=== PATIENT | male | born 1950 | race Caucasian/White ===

== ENCOUNTER 2019-01-04 11:48 | Inpatient (IN) | payer MEDICARE ==
[2019-01-04] MEDS ORDERED: Amiodarone 150 MG, Admixture Fee 1 EACH in Dextrose 5% in Water 100 ML IVPB SCH (12:15)
[2019-01-04] MEDS ORDERED: Amiodarone In Dextrose 200 ML IVPB SCH (12:15)
[2019-01-04] MEDS ORDERED: Magnesium 2 GM/50 ML BAG (IN WATER) ONE (12:29)
--- NOTE | 2019-01-04 13:04 | PDOC.FPRHP ---
- History of Present Illness Chief Complaint: SVT-Afib History of Present Illness: This is a 68 yo M who presents to the ED via EMS from [place] for new onset atrial fibrillation, going in and out of SVT. Pt c/c was not being able to catch his breath. The patient reports that he was having difficulty breathing. His symptoms started yesterday morning suddenly and worsened today. SOB comes and goes. Activity makes SOB worse. The patient reportedly went back and forth from T (150-152) to A-fib. The EMS started the patient on a cardezim and heparin drip. The patient endorses having a DVT 4 years ago before knee replacement. Reports having some sweating episodes this morning and felt a little woozy. Pt reports getting chill yesterday and getting SOB and almost falling down. Pt denies any swelling in legs or pain in in his legs. Denies any chest pain, n/v/d/c. Denies any numbness or tingling. ED Course: Pt was initially started on diltiazem drip on way to ER but was switched to amiodarone. - Allergies/Adverse Reactions Allergies Allergy/AdvReac Type Severity Reaction Status Date / Time No Known Allergies Allergy Unverified 07/30/13 19:28 - Home Medications Medication Instructions Recorded Confirmed Type Lisinopril [Zestril] 20 mg PO DAILY 07/30/13 07/30/13 History Enoxaparin Sodium [Lovenox] 100 mg SC 0600,1800 #0 syringe 08/02/13 Rx Warfarin Sodium [Coumadin] 5 mg PO HS #0 tab 08/02/13 Rx Comments: Pt no longer on lovenox and warfarin at this time. Has been off these for 5 years. - History PMHx: Hx DVT, HTN PSHx: Bilateral Knee Replacement (2016) FHx: noncontributory Mother- lupus Social: Never Smoker, Drinks on the weekends 5-6 glasses, Denies any illicit drug use. - Review of Systems General: reports: other (Reports sweats). denies: fever/chills, weight/appetite /sleep changes Eyes: denies: eye pain, vision changes ENT: denies: nasal congestion, rhinorrhea Respiratory: reports: shortness of breath, exercise intolerance. denies: cough , congestion Cardiovascular: denies: chest pain, palpitation, edema, orthopnea Gastrointestinal: denies: nausea, vomiting, diarrhea, constipation, abdominal pain Skin: denies: rashes, lesions Musculoskeletal: denies: pain, tenderness Neurological: reports: other (Reports having one pre-syncopal episode.). denies : numbness, syncope, weakness Psychological: denies: anxiety, depression - Vital signs BP: 99/86, Pulse: 145, Resp: 24, Pain: 0, O2 sat: 98, Time: 01/04/2019 12:01. Weight 130.8kg - Physical Exam Heart: normal S1/S2, no murmurs/rubs/gallops -Heart: Irregulaly irregular FMR H&P: Results - Labs Result Diagrams: 01/04/19 14:37 - Radiology Interpretation Chest x-ray Status: report reviewed by me (no cardiopulm process) FMR H&P: A/P - Problem List (1) Atrial fibrillation Current Visit: Yes Status: Acute Code(s): I48.91 - UNSPECIFIED ATRIAL FIBRILLATION (2) SVT (supraventricular tachycardia) Current Visit: Yes Status: Acute Code(s): I47.1 - SUPRAVENTRICULAR TACHYCARDIA (3) Atrial fibrillation with rapid ventricular response Current Visit: Yes Status: Acute Code(s): I48.91 - UNSPECIFIED ATRIAL FIBRILLATION - Plan New onset Atrial Fibrillation w/ RVR EKG showing atrial fibrillation w/ RVR. Trop neg 0.023 -> 0.051. - Started on dilt drip with no improvement. Patient started on amio and heparin drip. Heparin drip started due to hx of DVT. Will discontinue heparin drip as no concern for PE. D-dimer negative. - Will continue to trend troponin - TSH nml. No infectious etiology- Procal pending. - Will obtain echo - Cardiology consulted - Dr. Levy. Appreciate recommendations. Elevated Troponin - 0.025 -> 0.05. Will continue to trend - EKG showing atrial fibrillation. No ST changes evident. Leukopenia - WBC 3.7, no previous values to compare - Will obtain a peripheral smear Elevated BNP - BNP 679.9 - Will order echo - Cards consulted HTN - will hold home med - lisinopril Anticoagulation: heparin drip Fluids: gentle fluids Consults: cardiology Diet: NPO Case Discussed with Dr. Arnulfo Addendum - Attending - Attending Attestation Date/Time: 01/04/19 1529 I personally evaluated the patient and discussed the management with Dr. Kuo at the time of admission. I agree with the History, Examination, Assessment and Plan documented above with any addition or exceptions noted below.
[2019-01-04] MEDS ORDERED: Acetaminophen 325 MG TAB PO PRN (13:44)
[2019-01-04] MEDS ORDERED: Ondansetron PF 4 MG/2 ML Vial IVP PRN (13:44)
[2019-01-04] MEDS ORDERED: Acetaminophen 650 MG Suppository PR PRN (13:44)
[2019-01-04] MEDS ORDERED: Ondansetron ODT 4 MG TAB PO PRN (13:44)
[2019-01-04 14:49] LABS: Hemoglobin 12.9 g/dL (14.0-18.0); Mean Corpuscular HGB CONC 34.2 g/dL (32.0-36.0); Mean Corpuscular Hemoglobin 32.2 pg (27.0-31.0); Mean Corpuscular Volume 94.1 fL (78.0-98.0); Mean Platelet Volume 8.2 fL (7.4-10.4); Platelet Count 155 thou/uL (130-400); RBC Distribution Width 12.7 % (11.5-14.5); Red Blood Cell (RBC) Count 4.01 mill/uL (4.70-6.10); White Blood Cell (WBC) Count 4.2 thou/uL (4.8-10.8)
[2019-01-04 15:14] LABS: Band 2 % (5-11); Lymphocytes 25 % (21-51); MDiff Complete? YES; Monocytes 16 % (0-10); Neutrophil 53 % (42-75); Platelet Morphology Comment Appears Adequate; RBC Morphology Normal; Reactive Lymphocytes 3 % (0-10)
[2019-01-04 16:01] LABS: Troponin I 0.136 ng/mL (< 0.028)
[2019-01-04 18:17] VITALS: BMI 40.6
[2019-01-04 18:43] LABS: Hemoglobin A1c 4.9 % (4.0-6.0)
[2019-01-04] MEDS: Amiodarone 450 MG, Admixture Fee 1 EACH in Dextrose 5% in Water 250 ML IVPB SCH (18:43)
[2019-01-04 19:04] LABS: Troponin I 0.117 ng/mL (< 0.028)
[2019-01-04 19:18] LABS: CKMB 2.4 ng/mL (0-6.6)
[2019-01-04] MEDS: Lactated Ringer's 1,000 ML IV SCH (19:51)
[2019-01-04] MEDS ORDERED: Digoxin 0.5 MG/2 ML AMP SLOW IVP SCH (20:45)
[2019-01-04] MEDS ORDERED: Enoxaparin Sodium 120 MG/0.8 ML SYRINGE SC SCH (21:00)
[2019-01-04] MEDS: Enoxaparin Sodium 100 MG/ML SYRINGE SC SCH (21:53)
[2019-01-04] MEDS: Enoxaparin Sodium 30 MG/0.3 ML SYRINGE SC SCH (21:53)
--- NOTE | 2019-01-05 02:10 | CON ---
DATE OF CONSULTATION: HISTORY OF PRESENT ILLNESS: David Kelly is a 68-year-old white male who was admitted with atrial fibrillation. He has seen Dr. Khalil in the past for venous ablation. He started noticing yesterday morning that he would become somewhat short of breath and feel his heart is beating very rapidly if he would walk. If he would sit and rest, it would seem to calm down. This continued all day long and again was occurring this morning. He went to [facility] and was found to be in supraventricular tachycardia as well as episodes of atrial fibrillation and he is now transferred here for further care. He apparently was placed on Cardizem drip for a while, but now is on amiodarone. He denies any chest discomfort with this. He denies any previous cardiac problems. PAST MEDICAL HISTORY: Hypertension. He denies any history of diabetes or hypercholesterolemia. Five years ago, he did have a left leg DVT and took Lovenox shots at home until Coumadin took affect and was on Coumadin for a period of time. MEDICATIONS: At home include, 1. Zantac 150 daily. 2. Lisinopril 20 mg daily. ALLERGIES: NONE. PAST SURGICAL HISTORY: Total knee replacement. SOCIAL HISTORY: He does not smoke. He has 5 or 6 drinks on weekends. REVIEW OF SYSTEMS: A 12-point review of systems is, otherwise, unremarkable. PHYSICAL EXAMINATION: VITAL SIGNS: Blood pressure 156/98, pulse of 73. HEENT: PERRL. NECK: Supple. CHEST: Clear. CARDIAC: S1 and S2 normal without any S3, S4, or murmurs. Carotid upstrokes normal without bruits. ABDOMEN: Normal bowel sounds without tenderness or organomegaly. ABDOMEN: Obese. EXTREMITIES: Revealed no clubbing, cyanosis, or edema. NEUROLOGIC: Grossly intact. SKIN: Warm and dry. LABORATORY DATA: EKG revealed atrial fibrillation. At times, he has supraventricular tachycardia with rate of 150 per minute. D-dimer is 0.40. INR 1.2. Hemoglobin 12.9, hematocrit 37.8, white count 4200, platelets 155,000. Sodium 140, potassium 3.9, chloride 107, carbon dioxide 19, BUN 17, creatinine 1.27. Troponin I is 0.136. TSH is normal. Two weeks ago, cholesterol is 111, triglycerides 50, HDL 31, LDL 70. BNP 679.9. IMPRESSION: 1. New onset atrial fibrillation which historically he has been present for 30 to 35 hours. 2. Non-ST elevation myocardial infarction, type 2. 3. Hypertension. 4. History of deep venous thrombosis 5 years ago. 5. Mild obesity. PLAN: The patient currently is on IV amiodarone and his rate is somewhat better controlled, although at times it is still increased to 100 to 120 range. Echocardiogram will be performed to assess left ventricular function. He will be placed on Lovenox 1 mg/kg b.i.d. and eventually transition over to one of the newer oral anticoagulant. Job ID: [id number]
[2019-01-05 06:06] LABS: Hemoglobin 12.2 g/dL (14.0-18.0); Platelet Count 141 thou/uL (130-400)
[2019-01-05 06:24] LABS: Anion Gap 12 mmol/L (10-20); BUN (Urea Nitrogen) 15 mg/dL (8.4-25.7); Calc. Creatinine Clearance 127 mL/min (70-130); Calcium 8.4 mg/dL (7.8-10.44); Carbon Dioxide 20 mmol/L (23-31); Chloride 109 mmol/L (98-107); Estimated GFR-MDRD 72; Glucose 89 mg/dL (80-115); Sodium 137 mmol/L (136-145)
[2019-01-05 06:37] LABS: Band 1 % (5-11); Hemoglobin 11.9 g/dL (14.0-18.0); Lymphocytes 48 % (21-51); MDiff Complete? YES; Mean Corpuscular HGB CONC 32.5 g/dL (32.0-36.0); Mean Corpuscular Hemoglobin 30.8 pg (27.0-31.0); Mean Corpuscular Volume 94.9 fL (78.0-98.0); Mean Platelet Volume 7.9 fL (7.4-10.4); Monocytes 22 % (0-10); Neutrophil 29 % (42-75); Platelet Count 150 thou/uL (130-400); Platelet Morphology Comment Appears Adequate; RBC Distribution Width 12.6 % (11.5-14.5); Red Blood Cell (RBC) Count 3.85 mill/uL (4.70-6.10); White Blood Cell (WBC) Count 5.4 thou/uL (4.8-10.8)
--- NOTE | 2019-01-05 06:46 | PDOC.FM ---
- Subjective Subjective: NAEO. Patient resting in bed. Denies any chest discomfort or pain. Denies NV. Patient does endorse feeling SOB when he exerts himself, although this is better than yesterday. He states he does not feel as if his heart is beating as fast. - Objective MAR Reviewed: Yes Vital Signs & Weight: Vital Signs (12 hours) Temp Pulse Resp BP Pulse Ox 01/05/19 04:00 98.7 F 90 15 129/58 L 95 01/04/19 21:52 73 01/04/19 19:50 98.3 F 66 16 145/99 H 98 Weight Weight 132.194 kg Result Diagrams: 01/05/19 05:46 01/05/19 05:46 Phys Exam - Physical Examination Constitutional: NAD HEENT: PERRLA, moist MMs Neck: supple, full ROM Respiratory: clear to auscultation bilateral Cardiovascular: no significant murmur, no rub abnormal rhythm Gastrointestinal: soft, non-tender, no distention Musculoskeletal: pulses present Neurological: non-focal, moves all 4 limbs Psychiatric: normal affect, A&O x 3 Skin: no rash, normal turgor, cap refill <2 seconds Dx/Plan (1) Atrial fibrillation Code(s): I48.91 - UNSPECIFIED ATRIAL FIBRILLATION Status: Acute (2) SVT (supraventricular tachycardia) Code(s): I47.1 - SUPRAVENTRICULAR TACHYCARDIA Status: Acute (3) Atrial fibrillation with rapid ventricular response Code(s): I48.91 - UNSPECIFIED ATRIAL FIBRILLATION Status: Acute - Plan Plan: New onset Atrial Fibrillation w/ RVR, now rate controlled EKG showing atrial fibrillation w/ RVR. D Dimer neg. TSH nml. - Patient continued on amiodarone drip, rate improved - mostly in the 70-80s overnight. Still in afib/aflutter. - Troponin peaked at 0.136 -> 0.119. - Echo pending to evaluate LV function - Cardiology consulted - Dr. Levy. Appreciate recommendations. - Patient started on lovenox 1mg/kg BID. Will transition to oral anticoag upon discharge. Non-ST evelation CO, type 2 - Troponin trended to 0.136 -> 0.119. Likely demand ischemia. - EKG showing atrial fibrillation. No ST changes evident. Leukopenia, resolved - WBC 3.7 -> 5.4 - Peripheral smear pending Elevated BNP - BNP 679.9 - Echo pending - Cards consulted HTN - will restart home lisinopril; can increase dose to BID if BP elevated Anticoagulation: th lovenox Fluids: SL Consults: cardiology Dispo: pending clinical course and cards recs Addendum - Attending - Attending Attestation Date/Time: 01/05/19 1051 I personally evaluated the patient and discussed the management with Dr. Kuo. I agree with the History, Examination, Assessment and Plan documented above with any addition or exceptions noted below.
[2019-01-05] MEDS: Enoxaparin Sodium 30 MG/0.3 ML SYRINGE SC SCH ×2 (08:40→19:54)
[2019-01-05] MEDS: Enoxaparin Sodium 100 MG/ML SYRINGE SC SCH ×2 (08:40→19:55)
[2019-01-05] MEDS: Lisinopril 20 MG TAB PO SCH (08:40)
[2019-01-05] MEDS: Famotidine 20 MG TAB PO SCH (08:40)
[2019-01-05] MEDS: Lactated Ringer's 1,000 ML IV SCH (08:46)
[2019-01-05] MEDS: Amiodarone 450 MG in Dextrose 5% in Water 250 ML IVPB SCH (10:59)
[2019-01-05] MEDS ORDERED: Digoxin 0.5 MG/2 ML AMP SLOW IVP SCH ×2 (18:30→23:59)
[2019-01-06] MEDS: Amiodarone 450 MG, Admixture Fee 1 EACH in Dextrose 5% in Water 250 ML IVPB SCH (02:30)
--- NOTE | 2019-01-06 05:47 | PDOC.FM ---
- Subjective Subjective: NAEO. Patient resting in bed. No complaints. Denies chest pain or discomfort. Denies palpitations. Patient states he had a long conversation with Dr. Levy yesterday about potentially needing to have a procedure done. He states he has been ambulating, has not felt SOB w/ exertion. Will continue to walk around today to make sure he is at his baseline. - Objective MAR Reviewed: Yes Vital Signs & Weight: Vital Signs (12 hours) Temp Pulse Resp BP Pulse Ox 01/06/19 03:44 99.6 F 90 20 128/66 97 01/06/19 01:34 105 H 01/05/19 19:56 98.0 F 105 H 18 130/71 99 01/05/19 19:51 105 H 01/05/19 19:40 99 Weight Weight 132.194 kg I&O: 01/04/19 01/05/19 01/06/19 06:59 06:59 06:59 Intake Total 275 420.4 Output Total 700 1075 Balance -425 -654.6 Result Diagrams: 01/05/19 05:46 01/06/19 05:20 Phys Exam - Physical Examination Constitutional: NAD HEENT: PERRLA, moist MMs Neck: supple, full ROM Respiratory: clear to auscultation bilateral Cardiovascular: RRR, no significant murmur, no rub Gastrointestinal: soft, non-tender, no distention Musculoskeletal: no edema, pulses present Neurological: non-focal, moves all 4 limbs Psychiatric: normal affect, A&O x 3 Skin: no rash, normal turgor, cap refill <2 seconds Dx/Plan (1) Atrial fibrillation Code(s): I48.91 - UNSPECIFIED ATRIAL FIBRILLATION Status: Acute (2) SVT (supraventricular tachycardia) Code(s): I47.1 - SUPRAVENTRICULAR TACHYCARDIA Status: Acute (3) Atrial fibrillation with rapid ventricular response Code(s): I48.91 - UNSPECIFIED ATRIAL FIBRILLATION Status: Acute - Plan Plan: New onset Atrial Fibrillation w/ RVR, now converted to NSR EKG showing atrial fibrillation w/ RVR. D Dimer neg. TSH nml. - Patient continued on amiodarone drip, rate improved - mostly in the 70-80s overnight. Patient converted to NSR around 0550 this AM. Will continue to monitor. - Troponin peaked at 0.136 -> 0.119. - Echo: EF 35-40%, MR and TR, mild LA dilation - Cardiology consulted - Dr. Levy. Appreciate recommendations. Plan for RHYS w/ cardioversion on January 08 if patient converts back to afib/flutter. - Patient started on lovenox 1mg/kg BID. Will transition to oral anticoag upon discharge. - ASCVD risk score 18.8% - will recommend to start high intensity statin. Non-ST evelation NM, type 2 - Troponin trended to 0.136 -> 0.119. Likely demand ischemia. - EKG showing atrial fibrillation. No ST changes evident. Leukopenia, resolved - WBC 3.7 -> 5.4 - Peripheral smear pending Elevated BNP - BNP 679.9 - Echo: EF 35-40%, MR and TR, and mild LA dilation - Cards consulted HTN - will restart home lisinopril Anticoagulation: th lovenox Fluids: SL Consults: cardiology Dispo: patient now in NSR, cards recs; dc pending clinical course
[2019-01-06] MEDS ORDERED: Digoxin 0.125 MG TAB PO SCH (09:00)
[2019-01-06] MEDS: Enoxaparin Sodium 30 MG/0.3 ML SYRINGE SC SCH (10:11)
[2019-01-06] MEDS: Enoxaparin Sodium 100 MG/ML SYRINGE SC SCH (10:12)
[2019-01-06] MEDS: Famotidine 20 MG TAB PO SCH (10:12)
[2019-01-06] MEDS: Lisinopril 20 MG TAB PO SCH (10:12)
[2019-01-06] MEDS: Amiodarone 450 MG in Dextrose 5% in Water 250 ML IVPB SCH (16:42)
--- NOTE | 2019-01-06 18:46 | PDOC.CTH ---
Cardiology Progress Note - Subjective Feeling well, no new issues. - Objective Vital Signs Temp Pulse Resp BP BP Pulse Ox 01/06/19 15:25 98.3 F 61 16 129/74 97 01/06/19 11:15 97.8 F 68 16 122/71 99 01/06/19 10:12 76 133/73 01/06/19 07:52 96 01/06/19 07:10 98.0 F 69 18 116/68 96 Weight 287 lb 2 oz 01/05/19 01/06/19 01/07/19 06:59 06:59 06:59 Intake Total 275 834.1 Output Total 700 2355 Balance -425 -1520.9 - Physical Examination General/Neuro: alert & oriented x3, NAD Neck: no JVD present Lungs: unlabored respirations Heart: RRR Abdomen: NT/ND Extremities: + edema B (1+) - Telemetry Telemetry Rhythm: NSR - Labs Result Diagrams: 01/05/19 05:46 01/06/19 05:20 Troponin/CKMB CK-MB (CK-2) 2.4 ng/mL (0-6.6) 01/04/19 18:28 Troponin I 0.119 ng/mL (< 0.028) H 01/04/19 20:31 - Assessment/Plan 1. New onset afib/aflutter, Paroxysmal. 2. New onset CM EF at 35-40% 3. HTN 4. Indeterminate troponins. PLAN: - Will switch amiodarone to PO since he is now converted to sinus. - Amiodarone load at 400 mg TID for 7 days then down to 200 mg daily. - RHYS/DCCV not needed anymore - Will switch Lovenox to PO Eliquis and may d/c home tomorrow. - BB and ACEI to regimen for LV dysfunction. - Will need follow up with Dr. Khalil within a month for risk stratification.
[2019-01-06] MEDS: Amiodarone 200 MG TAB PO SCH (20:00)
[2019-01-06] MEDS: Apixaban 5 MG TAB PO SCH (20:01)
[2019-01-06] MEDS ORDERED: Atorvastatin Calcium 40 MG TAB PO SCH (21:00)
--- NOTE | 2019-01-07 06:00 | PDOC.FM ---
- Subjective Subjective: NAEO. Patient has no complaints or concerns. States he has been ambulating without getting SOB. He feels safe to go home and will f/u with his PCP. - Objective MAR Reviewed: Yes Vital Signs & Weight: Vital Signs (12 hours) Temp Pulse Resp BP Pulse Ox 01/07/19 03:16 98.0 F 60 18 120/64 97 01/06/19 23:53 69 113/56 L 01/06/19 19:45 98.0 F 67 16 156/83 H 98 Weight Weight 130.238 kg I&O: 01/05/19 01/06/19 01/07/19 06:59 06:59 06:59 Intake Total 275 834.1 Output Total 700 2355 Balance -425 -1520.9 Result Diagrams: 01/05/19 05:46 01/06/19 05:20 Phys Exam - Physical Examination Constitutional: NAD HEENT: PERRLA, moist MMs Neck: supple, full ROM Respiratory: clear to auscultation bilateral Cardiovascular: RRR Gastrointestinal: soft, non-tender, no distention Musculoskeletal: pulses present Neurological: non-focal, moves all 4 limbs Psychiatric: normal affect, A&O x 3 Skin: no rash, normal turgor, cap refill <2 seconds Dx/Plan (1) Atrial fibrillation Code(s): I48.91 - UNSPECIFIED ATRIAL FIBRILLATION Status: Acute (2) SVT (supraventricular tachycardia) Code(s): I47.1 - SUPRAVENTRICULAR TACHYCARDIA Status: Acute (3) Atrial fibrillation with rapid ventricular response Code(s): I48.91 - UNSPECIFIED ATRIAL FIBRILLATION Status: Acute - Plan Plan: New onset Atrial Fibrillation w/ RVR, now converted to NSR EKG showing atrial fibrillation w/ RVR. D Dimer neg. TSH nml. - Patient converted to NSR around 0550 on 01/06/19. Converted to PO amio. - Troponin peaked at 0.136 -> 0.119. - Echo: EF 35-40%, MR and TR, mild LA dilation - Cardiology consulted - Dr. Levy. Appreciate recommendations. - Patient started on eliquis for anticoagulation - ASCVD risk score 18.8% - high intensity statin started. Non-ST evelation MA, type 2 - Troponin trended to 0.136 -> 0.119. Likely demand ischemia. - EKG showing atrial fibrillation. No ST changes evident. Leukopenia, resolved - WBC 3.7 -> 5.4 HFrEF - BNP 679.9 - Echo: EF 35-40%, MR and TR, and mild LA dilation - Cards consulted - ACEi and BB started HTN - will restart home lisinopril Anticoagulation: th lovenox Fluids: SL Consults: cardiology Dispo: dc today, f/u with Dr. Khalil within a month
[2019-01-07] MEDS ORDERED: Carvedilol 3.125 MG TAB PO SCH (08:00)
[2019-01-07] MEDS: Famotidine 20 MG TAB PO SCH (08:47)
[2019-01-07] MEDS: Lisinopril 20 MG TAB PO SCH (08:48)
[2019-01-07] MEDS: Apixaban 5 MG TAB PO SCH (08:48)
[2019-01-07] MEDS: Amiodarone 200 MG TAB PO SCH (08:48)
[2019-01-07 08:49] VITALS: BP 122/70
[2019-01-07 09:50] VITALS: TEMP 98.6
--- NOTE | 2019-01-08 03:29 | DIS ---
DATE OF ADMISSION: 01/04/2019 DATE OF DISCHARGE: 01/07/2019 RESIDENT: Norma Kuo MD. ADMIT ATTENDING: DR. JENNIFER PASTRANA DISCHARGE ATTENDING: DR. SAM ORLANDO CONSULTS: Cardiology, Dr. Levy. PROCEDURES: None. PRIMARY DIAGNOSES: 1. New onset atrial fibrillation with rapid ventricular response. 2. Non-ST elevation myocardial infarction, type 2. 3. Heart failure with reduced ejection fraction. SECONDARY DIAGNOSIS: Hypertension. HISTORY OF PRESENT ILLNESS/HOSPITAL COURSE: This is a 68-year-old male who presented to the emergency department via EMS from the [place] [facility] for new onset atrial fibrillation. It was also reported that he was going in and out of SVT with a HR in the 140-150s. The patient stated that his main symptom was shortness of breath. The patient stated that his symptoms began the day prior and had worsened. The patient stated that activity made his shortness of breath worse. He did endorse feeling that his heart was beating faster. In the EMS, the patient was started on a Cardizem and heparin drip. The patient endorses having a DVT 4 years ago. The patient also reported some sweating episodes and felt a little woozy. The patient denied any chest pain, nausea, vomiting, diarrhea, numbness, or tingling. The patient was initially started on a diltiazem drip on the way to the ER, but his heart rate was not improving and was switched to an amiodarone drip. A chest x-ray was performed that showed no cardiopulmonary process. The patient initially had a troponin of 0.023, which trended up to 0.136 and downtrended after that. The patient had a TSH that was normal. The patient was admitted to the telemetry floor for further workup. On day 2 of the patient's hospitalization, the patient was rate improved with a rate in the 70s to 80s. The patient converted to normal sinus rhythm on 01/06 around 5:50 a.m. The patient was then converted to p.o. amiodarone. The patient also had an echocardiogram that showed an ejection fraction of 35% to 40 %, mild mitral and tricuspid regurgitation as well as mild left atrial dilation. Cardiology was consulted to help with medication management of this patient. The patient was no longer in need of a RHYS with cardioversion due to converting to normal sinus rhythm. The patient was also initially started on Lovenox 1 mg/kg b.i.d. and was transitioned to oral anticoagulation upon discharge. The patient had an ASCVD risk score of 18.8%. He was started on a high-intensity statin. Due to the patient's echo results, he was also started on a beta david. He will continue his home lisinopril. DISPOSITION: Stable. DISCHARGE INSTRUCTIONS: 1. Location: Home. 2. Diet: Heart healthy. 3. Activity: Ad davey. 4. Followup with PCP, Dr. Nowak within 1 week and follow up with Dr. Khalil within 1 month. Job ID: [id number] MTDD
--- NOTE | 2019-01-08 16:05 | PRG ---
DATE OF SERVICE: 01/06/2019 ADDENDUM: Please see the progress note done by Dr. Norma Kuo, for which I agree. The patient was seen, evaluated, and discussed and examined with the residents by bedside. It sounds like, he was set up to get a RHYS and likely cardioversion on Tuesday, but then on the amiodarone, converted to normal sinus rhythm last night. He feels fine. No other complaints or issues currently. Still on the amiodarone drip. PHYSICAL EXAMINATION: CHEST: Clear. CARDIOVASCULAR: Regular rhythm. ASSESSMENT AND PLAN: Atrial fibrillation. We will see what Cardiology says at this point in time. We will continue the amiodarone drip. We will see if they are going to switch to p.o. Still on Lovenox right now. But, we will see what Cardiology says, as far as the plan how long they are going to monitor him now. He is back in normal sinus rhythm. Did notice that he has had a little bit of elevated troponin, but likely more of a demand ischemia than anything. He does have a decreased ejection fraction as well. Per Cardiology, as far as that go make sure he is on his home SAMARIA inhibitor. Job ID: [id number]
--- NOTE | 2019-01-08 16:13 | PRG ---
DATE OF SERVICE: 01/07/2019 ADDENDUM: Please see note from Dr. Kuo for which I agree. The patient has remained in normal sinus rhythm. He is now on p.o. amiodarone, which will be slowly decreased over the next week or so, but Cardiology thinks we can send him out, so he will be able to be discharged home. On exam today, chest is clear. Cardiovascular, regular rate and rhythm. Extremities show no edema. We will follow up with Cardiology as an outpatient and with his primary this week. Job ID: [id number]
--- NOTE | 2019-01-09 07:04 | PQF ---
SAP Router Operator Radial Crystal Reports Winform Viewer KACI GARCIA RUSSEL B MD [id number] [facility]-264 [id number] CLINICAL DOCUMENTATION CLARIFICATION FORM: POST DISCHARGE Addendum to original discharge summary date: ____ Late entry note date: __ DATE:01-09-2019 ATTN:Cem Ventura Please exercise your independent, professional judgment in responding to the clarification form. Clinical indicators are provided on the bottom of this form for your review Based on your clinical judgment kindly clarify the acuity of the patients CHF. Please check appropriate box(s): Systolic Heart Failure ACUITY [ ] Acute [ ] Acute on Chronic [ ] Chronic [ ] Other diagnosis Please specify [ ] Unable to determine In addition, please specify: Present on Admission (POA): [ ] Yes [ ] No [ ] Unable to determine For continuity of documentation, please document condition throughout progress notes and discharge summary. Thank You. CLINICAL INDICATORS: ED 01/04 pg6 Presents for evaluation of SVT H&P 01/[address] Kuo Presents to ED via EMS from [place] for new onset atrial fibrillation, going in and out SVT. Pt c/c was not being able to catch his breath H&P 01/[address] Kuo Elevated BNP-679.9 PN 01/[address] Kuo Echo: EF:35-40%, MR and TR, and mild LA dialation PN 01/[address] Angeles New onset afib/flutter. Paroxysmal PN 01/[address] Angeles New onset CM EF at 35-40% DS 01/07 Dr. Kuo pg1 Heart failure with reduced ejection fraction RISKS: Consult Dr. Levy- Hypercholesterolemia Consult Dr. Levy- Mild Obesity Consult Dr. Levy- New onset Afib Consult Dr. Levy- HTN TREATMENTS: PN Dr. Angeles-BB and ACEI to regimen for LV dysfunction Imaging- 01/05 Echocardiogram Cardio Consult- Dr. Cam EASTMAN 01/04- Digoxin 0.5mg IV (This form is maintained as a part of the permanent medical record) 2014 [employer]. All Rights Reserved [email or web address] [not provided] MTDD
== END 2019-01-07 13:52 | disposition home or self-care (01) | DRG 281 ==
LOC: ERS 11:48 → ERHOLD 13:00 → 2NO 18:12
PROVIDERS: ADMIT Family Medicine; ATTEND Family Medicine
DX: I47.1 Supraventricular tachycardia (principal); I21.A1 Myocardial infarction type 2; I42.9 Cardiomyopathy, unspecified; I48.0 Paroxysmal atrial fibrillation; I11.0 Hypertensive heart disease with heart failure; I50.9 Heart failure, unspecified; D72.819 Decreased white blood cell count, unspecified; E66.9 Obesity, unspecified; Z96.653 Presence of artificial knee joint, bilateral; I08.1 Rheumatic disorders of both mitral and tricuspid valves; Z86.718 Personal history of other venous thrombosis and embolism; Z79.01 Long term (current) use of anticoagulants; Z79.899 Other long term (current) drug therapy; Z68.39 Body mass index [BMI] 39.0-39.9, adult
CPT/HCPCS: 36415; 80048; 80061; 82553; 82565; 83036; 84145; 84443; 85014; 85018; 85025; 85049; 85060; 93005; 93010; 93306; 96365; 96375; J0282; J1160; J1650; J3475; J7070; Q0162

== ENCOUNTER 2020-07-04 10:02 | Inpatient (IN) | payer MEDICARE ==
[2020-07-04] MEDS ORDERED: Azithromycin 500 MG VIAL ONE (10:21)
[2020-07-04] MEDS ORDERED: Acetaminophen 500 MG TAB ONE (10:21)
[2020-07-04] MEDS ORDERED: cefTRIAXone\\ROCEPHIN 1 GM VIAL ONE (10:21)
[2020-07-04 10:57] LABS: Bicarbonate (HCO3v) 20.2 mmol/L (22.0-28.0); CO2 Tension (PvCO2) 29.8 mmHg (40.0-50.0); Calcium, Ionized 0.97 mmol/L (1.15-1.33); Chloride 101 mmol/L (98-107); Hemoglobin - Calc 12.7 g/dL (14.0-18.0); Sodium 133 mmol/L (138-145); T. Carbon Dioxide 21.1 mmol/L (22.0-28.0); vO2 Saturation-calc 99.3 % (60.0-85.0)
--- NOTE | 2020-07-04 11:01 | RAD ---
Exam: Chest one view HISTORY:Dyspnea. COVID positive patient. Shortness of breath. Comparison: 01/04/2019 FINDINGS: Cardiac silhouette:Cardiomegaly Aorta: Unremarkable Pulmonary vessels: Normal Costophrenic angles: Clear LUNGS: Multifocal interstitial and alveolar opacities. Pneumothorax: None Osseous abnormalities: None IMPRESSION: Multi lobar COVID pneumonia.
[2020-07-04 11:02] LABS: Hemoglobin 13.6 g/dL (14.0-18.0); Mean Corpuscular HGB CONC 33.9 g/dL (32.0-36.0); Mean Corpuscular Hemoglobin 31.8 pg (27.0-31.0); Mean Corpuscular Volume 93.8 fL (78.0-98.0); RBC Distribution Width 12.9 % (11.5-14.5); Red Blood Cell (RBC) Count 4.29 mill/uL (4.70-6.10)
[2020-07-04 11:04] LABS: ALT (SGPT) 24 U/L (8-55); AST (SGOT) 84 U/L (5-34); Albumin 3.9 g/dL (3.4-4.8); Alkaline Phosphatase 50 U/L (40-110); Anion Gap 16 mmol/L (10-20); BUN (Urea Nitrogen) 23 mg/dL (8.4-25.7); Bilirubin, Total 1.4 mg/dL (0.2-1.2); Calc. Creatinine Clearance 0 mL/min (70-130); Calcium 7.6 mg/dL (7.8-10.44); Carbon Dioxide 19 mmol/L (23-31); Chloride 101 mmol/L (98-107); Globulin 3.4 g/dL (2.4-3.5); Glucose 118 mg/dL (83-110); Potassium 3.9 mmol/L (3.5-5.1); Protein, Total 7.3 g/dL (5.8-8.1); Sodium 132 mmol/L (136-145)
[2020-07-04 11:07] LABS: Band 4 % (5-11); Large Platelets SLIGHT; Lymphocytes 4 % (21-51); MDiff Complete? YES; Monocytes 36 % (0-10); Neutrophil 56 % (42-75); Platelet Count 91 thou/uL (130-400); Platelet Morphology Comment Appears Decreased; White Blood Cell (WBC) Count 10.2 thou/uL (4.8-10.8)
[2020-07-04 11:25] LABS: CKMB 0.8 ng/mL (0-6.6)
[2020-07-04 12:19] LABS: Bilirubin Negative (Negative); Blood, Urine 3+ (Negative); Clarity Clear (Clear); Glucose, Urine (Dipstick) Normal (Negative); Ketone, Urine Negative (Negative); Leukocyte Negative Leu/uL (Negative); Mucous/LPF Rare LPF (<2+); Nitrite Negative (Negative); Protein, Urine (Dipstick) 100 mg/dL (Neg-Trace); RBC/HPF Greater than 50 HPF (0-3); Specific Gravity, Urine 1.033 (1.002-1.036); Squamous Epithelial 0-3 HPF (0-3); Urobilinogen 6 mg/dL (Less than 2); WBC/HPF 0-3 HPF (0-3)
[2020-07-04 12:29] LABS: Bacteria/HPF 1+ HPF (None Seen)
--- NOTE | 2020-07-04 12:38 | CT ---
CTA Angio Chest W WO Con 07/04/2020 12:10 PM Indication: 70-year-old male with dyspnea and Covid diagnosis Technique: Multiple CTA images were obtained of the thorax with IV contrast. 3-D rendering: MIP yariel nstructed images were created and reviewed. Comparison: No relevant prior studies available. Findings: Pulmonary arteries: The diminished degree of contrast opacification of the pulmonary arterial tree i n addition to the respiratory motion artifact limits evaluation of the segmental pulmonary arteries for PE. No definite central pulmonary embolus is grossly evident. There is suspected mixing artifact within the distal main pulmonary arteries bilaterally as well as the main pulmonary arterial trunk. There is no evidence to suggest right heart dysfunction. Heart and Aorta: There are mild calcifications involving the thoracic aorta. The great vessel origin s appear within normal limits. Mediastinum:There is a mildly prominent 1.8 cm right suprahilar lymph node. There is a 1.3; a right i nfrahilar lymph node. There are mildly prominent lymph nodes within the left hilar region the largest measuring 1.3 cm. Lungs:There is diffuse perihilar groundglass airspace opacity consistent with an atypical pneumonia. Pleural space: Clear. Upper Abdomen: There is some mild distention of the gallbladder. Osseous Structures: There is scattered degenerative and osteoarthritic change present. Soft tissues:No abnormality. Other findings:None. Impression: 1. Diminished opacification of the pulmonary arterial tree due to contrast bolus timing as well as re spiratory motion artifact limits the evaluation. No definite central pulmonary embolus is evident. 2. Diffuse prominent bilateral perihilar groundglass airspace opacity consistent with an atypical pne umonia that can be seen with Covid 19. 3. Likely reactive bilateral hilar lymphadenopathy.
[2020-07-04] MEDS ORDERED: Enoxaparin Sodium 30 MG/0.3 ML SYRINGE ONE (12:58)
[2020-07-04] MEDS ORDERED: Enoxaparin Sodium 100 MG/ML SYRINGE ONE (12:58)
[2020-07-04] MEDS ORDERED: Iopamidol-370 76% 500 ML 1 ML ONE (13:25)
--- NOTE | 2020-07-04 15:08 | PDOC.FPRHP ---
- History of Present Illness Chief Complaint: SOB History of Present Illness: 70yo M with pmh of afib and HFrEF (December 2018 EF: 35-40%) presents with 5 day hx of SOB and cough. He was Dx with COVID-19 on Tuesday after a positive test. Since then his Sx have only worsened. Related Sx of nausea, no transforming factors. Pt was prescribed outpt medrol pack, azithro, and albuterol inhaler but states these have not helped much. no CP/palpitations/LE edema ED Course: rocephin, azithro, lovenox 1mg/kg - Allergies/Adverse Reactions Allergies Allergy/AdvReac Type Severity Reaction Status Date / Time No Known Allergies Allergy Verified 09/28/19 19:55 - Home Medications Medication Instructions Recorded Confirmed Type Lisinopril [Zestril] 20 mg PO DAILY 07/30/13 01/04/19 History Zantac 150 mg PO DAILY 01/04/19 01/04/19 History Apixaban [Eliquis] 5 mg PO BID #60 tab 01/06/19 Rx Atorvastatin Calcium [Lipitor] 40 mg PO HS #30 tab 01/06/19 Rx Carvedilol [Coreg] 3.125 mg PO BID-WM #60 tab 01/06/19 Rx Amiodarone [Cordarone] 200 mg PO DAILY #25 tab 01/07/19 Rx Amiodarone [Cordarone] 400 mg PO TID #20 tab 01/07/19 Rx - History PMHx: HTN, afib, HFrEF (EF 35-40%) PSHx: bilat knee replacement FHx: non contributory Social: no smoking/drugs, reports drinking 4 days per week (2-6 shots whiskey per time) - Review of Systems General: reports: fatigue. denies: fever/chills Eyes: denies: eye pain, vision changes ENT: reports: nasal congestion. denies: rhinorrhea Respiratory: reports: cough, congestion, shortness of breath, exercise intolera nce Cardiovascular: denies: chest pain, palpitation, edema Gastrointestinal: reports: nausea. denies: vomiting, diarrhea, constipation Genitourinary: denies: dysuria, polyuria Skin: denies: rashes, lesions Musculoskeletal: denies: pain, tenderness Neurological: denies: syncope, seizure Psychological: denies: anxiety, depression - Vital signs BP: 145/78, MAP: 100, Pulse: 68, Resp: 24, Temp: 98.3 (Oral), Pain: 3, O2 sat: 97 on (High Flow O2), Time: 07/04/2020 13:04. weight 133kg - Physical Exam Constitutional: awake, alert and oriented, other (mild distress) HEENT: normocephalic and atraumatic, EOMI, grossly normal vision, grossly normal hearing Neck: supple, trachea midline Chest: no-tender to palpation Heart: RRR, normal S1/S2 Lungs: good air movement, no wheezing -Lungs: bilat inspiratory/expiratory crackles diffusely Abdomen: soft, non-tender, bowel sounds present Musculoskeletal: normal structure, normal tone Neurological: no focal deficit, normal sensation Skin: no rash/lesions, good turgor Heme/Lymphatic: no unusual bruising or bleeding, no purpura Psychiatric: normal mood and affect, good judgment and insight FMR H&P: Results - Labs Result Diagrams: 07/04/20 10:27 07/04/20 10:27 Lab results: WBC 10.2 thou/uL (4.8-10.8) 07/04/20 10:27 Hgb 13.6 g/dL (14.0-18.0) L 07/04/20 10:27 Hct 40.2 % (42.0-52.0) L 07/04/20 10:27 MCV 93.8 fL (78.0-98.0) 07/04/20 10:27 Plt Count 91 thou/uL (130-400) L 07/04/20 10:27 Band Neuts % (Manual) 4 % (5-11) L 07/04/20 10:27 VBG pCO2 29.8 mmHg (40.0-50.0) L 07/04/20 10:52 VBG pO2 141.5 mmHg (35.0-45.0) H 07/04/20 10:52 Sodium 132 mmol/L (136-145) L 07/04/20 10:27 Potassium 3.9 mmol/L (3.5-5.1) 07/04/20 10:27 Chloride 101 mmol/L (98-107) 07/04/20 10:27 Carbon Dioxide 19 mmol/L (23-31) L 07/04/20 10:27 BUN 23 mg/dL (8.4-25.7) 07/04/20 10: Creatinine 1.16 mg/dL (0.7-1.3) 07/04/20 10:27 Glucose 118 mg/dL (83-110) H 07/04/20 10:27 Lactic Acid 2.0 mmol/L (0.5-2.2) 07/04/20 10:27 Calcium 7.6 mg/dL (7.8-10.44) L 07/04/20 10:27 Total Bilirubin 1.4 mg/dL (0.2-1.2) H 07/04/20 10:27 AST 84 U/L (5-34) H 07/04/20 10: ALT 24 U/L (8-55) 07/04/20 10: Alkaline Phosphatase 50 U/L (40-110) 07/04/20 10: CK-MB (CK-2) 0.8 ng/mL (0-6.6) 07/04/20 10: Serum Total Protein 7.3 g/dL (5.8-8.1) 07/04/20 10: Albumin 3.9 g/dL (3.4-4.8) 07/04/20 10:27 Urine Ketones Negative mg/dL (Negative) 07/04/20 10:55 Urine Blood 3+ (Negative) A 07/04/20 10:55 Urine Nitrite Negative (Negative) 07/04/20 10:55 Ur Leukocyte Esterase Negative Nick/uL (Negative) 07/04/20 10:55 Urine RBC Greater than 50 HPF (0-3) A 07/04/20 10:55 Urine WBC 0-3 HPF (0-3) 07/04/20 10:55 Ur Squamous Epith Cells 0-3 HPF (0-3) 07/04/20 10:55 Urine Bacteria 1+ HPF (None Seen) A 07/04/20 10:55 FMR H&P: Upper Level - Plan Date/Time: 07/04/20 1506 Ariel Montalvo PGY3 A/P Hypoxic Respiratory Failure 2/2 COVID-19 PNA A- Stable on HFNC. Was 70% on RA. ABG showed evidence of respiratory alkalosis and metabolic compensation which is congruent with pts presenting RR of 37. CTA and CXR show evidence of covid pna, no evidence of PE or bacterial consolidation (however there was a noted motion artifact). WBC low at 10 and procal pending. Currently I have low suspicion of PE or bacterial superinfection P- admit to inpt covid unit -start decadron -pharmacy to dose remdesevir and convalescent plasma -tessalon, zofran, and benadryl as needed -home eliquis for thrombus Ppx -wean HFNC as tolerated Sepsis 2/2 COVID-19 PNA A- stable, BPs stable P- per plan above HFrEF A- Pt appears euvolemic on exam P- strict I/Os -daily weights -fluid restrict to 1800ml/day -pt denied any home meds other than lisopril and eliquis however he was DCd December 2018 with coreg and atorvastatin. Will clarify with pt if he is supposed to be taking these and restart if appropriate Alcohol use A- Possible excessive intake, pt difficult historian P- ASE protocol, hold prn benzos for now Afib, HTN, obesity -quiescent, continue home meds CODE: FULL dispo: inpt, expect > 2 midnights PCP: She IVF: KVO DVT Ppx: home eliquis
[2020-07-04] MEDS ORDERED: Ondansetron PF 4 MG/2 ML Vial IVP PRN ×2 (19:45→19:47)
[2020-07-04] MEDS ORDERED: Acetaminophen 325 MG TAB PO PRN (19:45)
[2020-07-04] MEDS ORDERED: Ondansetron ODT 4 MG TAB SL PRN (19:45)
[2020-07-04] MEDS ORDERED: guaiFENesin 100 MG/5 ML UDCUP PO PRN (19:47)
[2020-07-04] MEDS ORDERED: Melatonin 3 MG TAB PO PRN (19:47)
[2020-07-04] MEDS ORDERED: Calcium Carbonate 500 MG ChewTAB PO PRN (19:47)
[2020-07-04] MEDS ORDERED: Benzonatate 100 MG CAP PO PRN (19:47)
[2020-07-04] MEDS ORDERED: Pharmacy to Dose REMDESIVIR IVPB PRN (19:47)
[2020-07-04] MEDS ORDERED: Ondansetron ODT 4 MG TAB PO PRN (19:47)
[2020-07-04] MEDS ORDERED: Dexamethasone 4 MG TAB PO SCH (20:00)
[2020-07-04] MEDS: Apixaban 5 MG TAB PO SCH (20:41)
[2020-07-04] MEDS ORDERED: REMDESIVIR (EUA) 200 MG in Sodium Chloride 0.9% 250 ML 210 ML IV SCH (21:00)
[2020-07-04 21:03] LABS: Troponin I 0.031 ng/mL (< 0.028)
[2020-07-05] MEDS ORDERED: Cepastat Lozenges 1 LOZ PO PRN (00:46)
[2020-07-05] MEDS ORDERED: Diabetic Tussin 200 MG/10 ML UDCUP PO PRN (01:20)
--- NOTE | 2020-07-05 06:06 | PDOC.FM ---
- Subjective Subjective: Pt resting in bed this AM. States that he has a cough that is bothering him. - Objective Vital Signs & Weight: Vital Signs (12 hours) Temp Pulse Pulse Resp BP BP BP 07/05/20 03:50 97.8 F 59 L 28 H 163/96 H 163/96 H 07/05/20 02:08 97.8 F 56 L 28 H 168/96 H 07/05/20 02:03 07/05/20 01:40 98.5 F 59 L 28 H 144/88 H 07/04/20 23:55 98.0 F 58 L 30 H 159/84 H 07/04/20 23:40 159/84 H 07/04/20 19:30 98.2 F 61 32 H 134/74 134/74 Pulse Ox 07/05/20 03:50 94 L 07/05/20 02:08 94 L 07/05/20 02:03 92 L 07/05/20 01:40 94 L 07/04/20 23:55 92 L 07/04/20 23:40 07/04/20 19:30 97 Weight Weight 131.27 kg I&O: 07/03/20 07/04/20 07/05/20 06:59 06:59 06:59 Intake Total 1090 Output Total 600 Balance 490 Result Diagrams: 07/05/20 06:15 07/05/20 06:15 Phys Exam - Physical Examination Constitutional: NAD On HFNC HEENT: moist MMs Neck: no nodes, no JVD, supple Respiratory: no rales, no rhonchi wheezing--expiratory noted Cardiovascular: RRR, no significant murmur, no rub Gastrointestinal: soft, non-tender, no distention, positive bowel sounds Dx/Plan - Plan Plan: ##Hypoxic Respiratory Failure 2/2 COVID-19 PNA -started in decadron -s/p convalescent plasma -remdesivir ordered -tessalon, zofran, and benadryl as needed -home eliquis for thrombus PPX -wean HFNC as tolerated ##Sepsis 2/2 COVID-19 PNA A- stable, BPs stable P- per plan above ##HFrEF A- Pt appears euvolemic on exam P- strict I/Os -daily weights -fluid restrict to 1800ml/day -pt denied any home meds other than lisopril and eliquis -however he was DC'd December 2018 with coreg and atorvastatin; will clarify with pt if he is supposed to be taking these and restart if appropriate ##Alcohol use A- Possible excessive intake, pt difficult historian P- ASE protocol, hold prn benzos for now ##Afib, HTN, obesity -quiescent, continue home meds CODE: FULL PCP: She DVT PPX: home eliquis Dispo as of 07/05: Pt currently on HFNC slightly tachypneic. Has a very bothersome cough we will treat symptomatically. Will wean O2 as tolerated. On COVID standard treatment at this time. Will continue to monitor respiratory st atus closely. Addendum - Attending - Attending Attestation Date/Time: 07/05/20 0209 I personally evaluated the patient and discussed the management with Dr. Montes. I agree with the History, Examination, Assessment and Plan documented above with any addition or exceptions noted below. The patient is on high-flow oxygen and is still somewhat short of breath. Sats low 90's. Receiving steroids, remdesevir and plasma. PRN cough meds available for the cough.
[2020-07-05 06:57] LABS: ALT (SGPT) 23 U/L (8-55); AST (SGOT) 74 U/L (5-34); Albumin 3.6 g/dL (3.4-4.8); Alkaline Phosphatase 44 U/L (40-110); Anion Gap 15 mmol/L (10-20); BUN (Urea Nitrogen) 25 mg/dL (8.4-25.7); Bilirubin, Total 0.8 mg/dL (0.2-1.2); Calc. Creatinine Clearance 138 mL/min (70-130); Calcium 7.7 mg/dL (7.8-10.44); Carbon Dioxide 21 mmol/L (23-31); Chloride 102 mmol/L (98-107); Globulin 3.5 g/dL (2.4-3.5); Glucose 113 mg/dL (83-110); Potassium 4.1 mmol/L (3.5-5.1); Protein, Total 7.1 g/dL (5.8-8.1); Sodium 134 mmol/L (136-145)
[2020-07-05 06:59] LABS: Band 22 % (5-11); Hemoglobin 11.4 g/dL (14.0-18.0); Lymphocytes 12 % (21-51); MDiff Complete? YES; Mean Corpuscular Hemoglobin 31.8 pg (27.0-31.0); Mean Corpuscular Volume 93.6 fL (78.0-98.0); Monocytes 22 % (0-10); Neutrophil 44 % (42-75); Platelet Count 109 thou/uL (130-400); Platelet Morphology Comment Appears Decreased; RBC Distribution Width 12.8 % (11.5-14.5); Red Blood Cell (RBC) Count 3.59 mill/uL (4.70-6.10)
[2020-07-05] MEDS: Diabetic Tussin 200 MG/10 ML UDCUP PO SCH ×4 (08:50→20:37)
[2020-07-05] MEDS: Dexamethasone 4 MG TAB PO SCH (08:50)
[2020-07-05] MEDS: Apixaban 5 MG TAB PO SCH ×2 (08:51→20:37)
[2020-07-05] MEDS: Lisinopril 20 MG TAB PO SCH (08:51)
[2020-07-05] MEDS ORDERED: Carvedilol 3.125 MG TAB PO SCH (09:00)
[2020-07-05] MEDS ORDERED: Azithromycin 250 MG TAB PO SCH (09:00)
[2020-07-05] MEDS: Carvedilol 3.125 MG TAB PO SCH (16:03)
[2020-07-05] MEDS: Benzonatate 100 MG CAP PO SCH (16:35)
[2020-07-05] MEDS: Acetaminophen 325 MG TAB PO PRN ×2 (16:35→20:45)
[2020-07-05] MEDS ORDERED: hydrALAZINE 20 MG/ML VIAL SLOW IVP PRN (17:20)
[2020-07-05] MEDS: REMDESIVIR (EUA) 100 MG in Sodium Chloride 0.9% 250 ML 230 ML IV SCH (20:36)
[2020-07-05] MEDS: Atorvastatin Calcium 40 MG TAB PO SCH (20:36)
[2020-07-06] MEDS: Diabetic Tussin 200 MG/10 ML UDCUP PO SCH ×6 (00:36→20:28)
[2020-07-06] MEDS: Acetaminophen 325 MG TAB PO PRN ×2 (04:50→17:43)
--- NOTE | 2020-07-06 06:09 | PDOC.FM ---
- Subjective Subjective: Pt resting in bed this AM. States that he is feeling very tired this AM. Did not sleep well last night. Does not feel better than yesterday. - Objective Vital Signs & Weight: Vital Signs (12 hours) Temp Pulse Resp BP Pulse Ox 07/06/20 04:51 98.5 F 77 24 H 170/99 H 90 L 07/06/20 04:00 90 L 07/06/20 01:00 90 L 07/06/20 00:48 98.2 F 70 24 H 166/89 H 84 L 07/06/20 00:20 93 L 07/05/20 20:11 98.1 F 66 22 H 168/93 H 93 L 07/05/20 20:00 93 L 07/05/20 18:20 22 H 162/92 H 93 L Weight Weight 131.27 kg I&O: 07/04/20 07/05/20 07/06/20 06:59 06:59 06:59 Intake Total 1090 1190 Output Total 600 600 Balance 490 590 Result Diagrams: 07/06/20 06:00 07/06/20 06:00 Phys Exam - Physical Examination Constitutional: NAD tired appearing HEENT: moist MMs Neck: supple Respiratory: no rales, no rhonchi tachypnea Cardiovascular: RRR, no significant murmur, no rub Gastrointestinal: soft, non-tender, no distention, positive bowel sounds Musculoskeletal: pulses present Neurological: moves all 4 limbs Psychiatric: normal affect, A&O x 3 Skin: normal turgor Dx/Plan - Plan Plan: ##Hypoxic Respiratory Failure 2/2 COVID-19 PNA -started in decadron -s/p convalescent plasma -remdesivir ordered -tessalon, zofran, and benadryl as needed -home eliquis for thrombus PPX -HFNC had to be increased last night from FiO2 88-->92%, still satting in low 90s. Looks tired appearing this AM. ##HFrEF -daily weights -fluid restrict to 1800ml/day -pt denied any home meds other than lisopril -coreg and atorvastatin started ##HTN -SBPs have been elevated is on lisinopril and coreg only -Hydralyzine prn -Will consider additional medication or uptitrating lisinopril Chronic Conditions: ##Alcohol use -ase scores have been stable -no concerns about withdrawal ##Afib, obesity -quiescent, continue home meds CODE: FULL PCP: She DVT PPX: home eliquis Dispo as of 07/06: Pt currently on HFNC slightly tachypneic had to be increased last night. Cough mildly improved with medication. Due to patient's appearance this AM will consider ordering ABG this AM and furthering decisions from there. Continue with standard COVID txt at this time. Addendum - Attending - Attending Attestation Date/Time: 07/06/20 6089 I personally evaluated the patient and discussed the management with Dr. Montes. I agree with the History, Examination, Assessment and Plan documented above with any addition or exceptions noted below. The patient appears tired this morning and sats drop into the 80's with any movement or talking. ABG ordered and PaO2 in 40's. Transferring to IMCU. Will consult pulmonology. Will continue steroids, remdesevir.
[2020-07-06 06:52] LABS: ALT (SGPT) 23 U/L (8-55); AST (SGOT) 91 U/L (5-34); Albumin 3.6 g/dL (3.4-4.8); Alkaline Phosphatase 54 U/L (40-110); Anion Gap 16 mmol/L (10-20); BUN (Urea Nitrogen) 30 mg/dL (8.4-25.7); Bilirubin, Total 1.1 mg/dL (0.2-1.2); Calc. Creatinine Clearance 137 mL/min (70-130); Calcium 7.8 mg/dL (7.8-10.44); Carbon Dioxide 21 mmol/L (23-31); Chloride 101 mmol/L (98-107); Globulin 3.6 g/dL (2.4-3.5); Glucose 92 mg/dL (83-110); Potassium 4.1 mmol/L (3.5-5.1); Protein, Total 7.2 g/dL (5.8-8.1); Sodium 134 mmol/L (136-145)
[2020-07-06 06:59] LABS: Band 12 % (5-11); Hemoglobin 12.2 g/dL (14.0-18.0); Lymphocytes 13 % (21-51); MDiff Complete? YES; Mean Corpuscular HGB CONC 33.5 g/dL (32.0-36.0); Mean Corpuscular Hemoglobin 31.5 pg (27.0-31.0); Mean Corpuscular Volume 94.1 fL (78.0-98.0); Mean Platelet Volume 9.6 fL (7.4-10.4); Monocytes 27 % (0-10); Neutrophil 48 % (42-75); Platelet Count 150 thou/uL (130-400); Platelet Morphology Comment Appears Adequate; RBC Distribution Width 13.1 % (11.5-14.5); RBC Morphology Normal; Red Blood Cell (RBC) Count 3.87 mill/uL (4.70-6.10); White Blood Cell (WBC) Count 17.2 thou/uL (4.8-10.8)
[2020-07-06 08:08] LABS: Actual Bicarbonate (HCO3a) 21.4 mEq/L (22-28); Analyzer IN Cardio ER; Base Excess (BEa) -2.1 mEq/L (-2.0 to +3.0); CO2 Tension 32.7 mmHg (35.0-45.0); Calcium, Ionized (arterial) 1.09 mmol/L (1.12-1.30); Carboxyhemoglobin (COHb) 0.2 gm% (0.0-3.0); Hemoglobin (Hb) 12.7 g/dL (14.0-18.0); Potassium - ABG Lab 4.01 mmol/L (3.70-5.30); pH, Arterial 7.43 (7.35-7.45)
[2020-07-06] MEDS: Benzonatate 100 MG CAP PO SCH (08:14)
[2020-07-06] MEDS: Dexamethasone 4 MG TAB PO SCH (08:14)
[2020-07-06] MEDS: Apixaban 5 MG TAB PO SCH ×2 (08:14→20:28)
[2020-07-06] MEDS: Lisinopril 20 MG TAB PO SCH ×2 (08:15→20:28)
[2020-07-06] MEDS: Carvedilol 3.125 MG TAB PO SCH ×2 (08:15→17:43)
[2020-07-06 08:21] LABS: ALV-art Gradient 566.085 mmHg (0-20); Puncture Site LRA
--- NOTE | 2020-07-06 17:33 | CON ---
DATE OF CONSULTATION: 07/06/2020 HISTORY OF PRESENT ILLNESS: David Kelly is a 70-year-old male with a history of systolic cardiomyopathy and atrial fibrillation. He presented with COVID pneumonia. His gas exchange declined, so he is transferred to the IMU, BiPAP. PAST MEDICAL HISTORY: Remarkable for: 1. Hypertension. 2. Atrial fibrillation. 3. Systolic cardiomyopathy. 4. Knee replacement bilaterally. FAMILY HISTORY: Negative for lung disease in early age. SOCIAL HISTORY: He drinks most days of the week. He is not a smoker. REVIEW OF SYSTEMS: He has a negative review of systems, 10-point. PHYSICAL EXAMINATION: GENERAL: He has BiPAP on. He is in no distress. VITAL SIGNS: Blood pressure is 150/95, heart rate 66, respiratory rates in the high 20s to low 30s, oximetry is in the 90% to 94% range. HEAD AND NECK: Otherwise, unremarkable. LUNGS: Remarkable for coarse equal breath sounds. HEART: Regular rhythm. ABDOMEN: Protuberant, nontender. EXTREMITIES: Without edema. LABORATORY DATA: White count 17.2, hemoglobin 12.2, and platelets 150. Electrolytes are unremarkable. Blood gas today, pH 7.43, CO2 of 32, pO2 of 49. IMPRESSION: COVID pneumonia, now on BiPAP. We will watch closely on the intermediate care unit. Remdesivir and plasma have been ordered. He is on steroids. He is already anticoagulated because of his atrial fibrillation. We will follow. This is a 50 minutes consult with greater than 50% time spent on the unit coordinating care. Job ID: [id number] [facility]
[2020-07-06] MEDS: Atorvastatin Calcium 40 MG TAB PO SCH (20:28)
[2020-07-06] MEDS: REMDESIVIR (EUA) 100 MG in Sodium Chloride 0.9% 250 ML 230 ML IV SCH (20:30)
[2020-07-07] MEDS: Diabetic Tussin 200 MG/10 ML UDCUP PO SCH ×7 (00:23→23:43)
[2020-07-07 04:19] LABS: ALT (SGPT) 25 U/L (8-55); AST (SGOT) 98 U/L (5-34); Albumin 3.4 g/dL (3.4-4.8); Alkaline Phosphatase 58 U/L (40-110); Anion Gap 15 mmol/L (10-20); BUN (Urea Nitrogen) 29 mg/dL (8.4-25.7); Bilirubin, Total 1.1 mg/dL (0.2-1.2); Calc. Creatinine Clearance 149 mL/min (70-130); Calcium 7.9 mg/dL (7.8-10.44); Carbon Dioxide 21 mmol/L (23-31); Chloride 103 mmol/L (98-107); Globulin 3.5 g/dL (2.4-3.5); Glucose 99 mg/dL (83-110); Potassium 4.4 mmol/L (3.5-5.1); Protein, Total 6.9 g/dL (5.8-8.1); Sodium 135 mmol/L (136-145)
[2020-07-07 04:32] LABS: Band 5 % (5-11); Hemoglobin 11.4 g/dL (14.0-18.0); Lymphocytes 14 % (21-51); MDiff Complete? YES; Mean Corpuscular HGB CONC 32.7 g/dL (32.0-36.0); Mean Corpuscular Hemoglobin 31.1 pg (27.0-31.0); Mean Corpuscular Volume 94.9 fL (78.0-98.0); Mean Platelet Volume 9.3 fL (7.4-10.4); Metamyelocyte 4 % (0-0); Monocytes 28 % (0-10); Myelocyte 1 % (0-0); Neutrophil 48 % (42-75); Platelet Count 164 thou/uL (130-400); Platelet Morphology Comment Appears Adequate; RBC Distribution Width 13.2 % (11.5-14.5); Red Blood Cell (RBC) Count 3.66 mill/uL (4.70-6.10); White Blood Cell (WBC) Count 15.5 thou/uL (4.8-10.8)
--- NOTE | 2020-07-07 05:46 | PDOC.FM ---
- Subjective Subjective: Pt resting in bed this AM. Is anxious this AM because the room has been warm. Was on BiPAP overnight which helped, however he is now on HFNC doing well he says. He is very anxious and is asking when he can go home and when he can move out of the [facility]. - Objective Vital Signs & Weight: Vital Signs (12 hours) Temp BP Pulse Ox 07/07/20 04:00 97.6 F 07/07/20 03:41 97.2 F L 07/07/20 03:00 96.7 F L 07/07/20 00:00 97.7 F 07/06/20 23:38 97.7 F 07/06/20 20:28 132/85 07/06/20 20:00 97.7 F 95 Weight Weight 129.183 kg Most Recent Monitor Data Heart Rate from ECG 60 NIBP 147/98 NIBP BP-Mean 114 Respiration from ECG 31 SpO2 94 I&O: 07/05/20 07/06/20 07/07/20 06:59 06:59 06:59 Intake Total 1090 1920 730 Output Total 600 1350 1050 Balance 490 570 -320 Result Diagrams: 07/07/20 03:33 07/07/20 03:33 Phys Exam - Physical Examination Constitutional: NAD on HFNC HEENT: moist MMs Neck: supple Respiratory: no wheezing, no rales, no rhonchi, clear to auscultation bilateral Cardiovascular: RRR, no significant murmur, no rub Gastrointestinal: soft, non-tender, no distention, positive bowel sounds Deviation from normal: anxious Dx/Plan - Plan Plan: ##Hypoxic Respiratory Failure 2/2 COVID-19 PNA -started in decadron -s/p convalescent plasma -remdesivir ordered and started -tessalon, zofran, and benadryl as needed -home eliquis for thrombus PPX -HFNC had to be increased last night from FiO2 88-->92%, still satting in low 90s. Looks tired appearing yesterday so transferred to [facility] and started on BiPAP. Was on BiPAP last night was doing well. Consulted Dr. Maloney of pulmonology, appreciate recs. ##HFrEF -daily weights -fluid restrict to 1800ml/day -pt denied any home meds other than lisopril -coreg and atorvastatin started ##HTN -SBPs have been elevated is on lisinopril and coreg only -Hydralyzine prn -Will consider additional medication or uptitrating lisinopril Chronic Conditions: ##Alcohol use -ase scores have been stable -no concerns about withdrawal ##Afib, obesity -quiescent, continue home meds CODE: FULL PCP: She DVT PPX: home eliquis Dispo as of 07/07: Pt anxious to move out of IMCU. On HFNC at 88% FiO2. Will wean as tolerated. Continue with standard COVID txt at this time. Addendum - Attending - Attending Attestation Date/Time: 07/07/20 1204 I personally evaluated the patient and discussed the management with Dr. Montes. I agree with the History, Examination, Assessment and Plan documented above with any addition or exceptions noted below. Patient improved and doing well now on HFNC. Continue COVID care.
[2020-07-07] MEDS: Carvedilol 3.125 MG TAB PO SCH ×2 (08:08→16:51)
[2020-07-07] MEDS: Dexamethasone 4 MG TAB PO SCH (08:08)
[2020-07-07] MEDS: Lisinopril 20 MG TAB PO SCH ×2 (08:08→20:26)
[2020-07-07] MEDS: Apixaban 5 MG TAB PO SCH ×2 (08:09→20:26)
[2020-07-07] MEDS ORDERED: hydrOXYzine 10 MG TAB PO PRN (09:08)
--- NOTE | 2020-07-07 12:05 | PRG ---
DATE OF SERVICE: 07/07/2020 SUBJECTIVE: David Kelly says he is feeling better. He wants to get up in a chair. OBJECTIVE: VITAL SIGNS: Blood pressure 135/92, heart rate 66, respiratory rate 24, and FiO2 is 90% on high-flow. LUNGS: Unchanged. HEART: Unchanged. ABDOMEN: Unchanged. IMPRESSION: COVID pneumonia, hopefully starting to make some progress. Job ID: [id number]
[2020-07-07] MEDS: Acetaminophen 325 MG TAB PO PRN (16:50)
[2020-07-07] MEDS: REMDESIVIR (EUA) 100 MG in Sodium Chloride 0.9% 250 ML 230 ML IV SCH (20:25)
[2020-07-07] MEDS: Atorvastatin Calcium 40 MG TAB PO SCH (20:26)
[2020-07-08] MEDS: Diabetic Tussin 200 MG/10 ML UDCUP PO SCH ×5 (04:09→22:31)
[2020-07-08 04:25] LABS: ALT (SGPT) 27 U/L (8-55); AST (SGOT) 122 U/L (5-34); Albumin 3.5 g/dL (3.4-4.8); Alkaline Phosphatase 86 U/L (40-110); Anion Gap 18 mmol/L (10-20); BUN (Urea Nitrogen) 29 mg/dL (8.4-25.7); Bilirubin, Total 1.3 mg/dL (0.2-1.2); Calc. Creatinine Clearance 139 mL/min (70-130); Carbon Dioxide 21 mmol/L (23-31); Chloride 101 mmol/L (98-107); Globulin 3.7 g/dL (2.4-3.5); Glucose 96 mg/dL (83-110); Potassium 4.5 mmol/L (3.5-5.1); Protein, Total 7.2 g/dL (5.8-8.1); Sodium 135 mmol/L (136-145)
[2020-07-08 04:42] LABS: Band 13 % (5-11); Hemoglobin 12.3 g/dL (14.0-18.0); Hypochromia SLIGHT = 6-15 cells (100X) (0-5/hpf); Lymphocytes 14 % (21-51); MDiff Complete? YES; Mean Corpuscular HGB CONC 33.3 g/dL (32.0-36.0); Mean Corpuscular Hemoglobin 31.4 pg (27.0-31.0); Mean Corpuscular Volume 94.2 fL (78.0-98.0); Mean Platelet Volume 9.5 fL (7.4-10.4); Metamyelocyte 2 % (0-0); Monocytes 13 % (0-10); Neutrophil 53 % (42-75); Platelet Count 153 thou/uL (130-400); Platelet Morphology Comment Appears Adequate; RBC Distribution Width 13.3 % (11.5-14.5); Reactive Lymphocytes 5 % (0-10); Red Blood Cell (RBC) Count 3.92 mill/uL (4.70-6.10); White Blood Cell (WBC) Count 23.1 thou/uL (4.8-10.8)
--- NOTE | 2020-07-08 05:44 | PDOC.FM ---
- Subjective Subjective: Patient reports that he is anxious about being in the hospital. He is having significant shortness of breath. Had discussion about trying to focus on controlled, adequate breathing. - Objective MAR Reviewed: Yes Vital Signs & Weight: Vital Signs (12 hours) Temp Pulse Resp BP Pulse Ox 07/08/20 04:00 152/78 H 07/08/20 03:52 97.6 F 07/08/20 01:40 57 L 37 H 95 07/08/20 00:00 136/56 L 07/07/20 23:39 99.4 F 07/07/20 20:30 97.6 F 07/07/20 20:00 139/69 95 Weight Weight 129.183 kg Most Recent Monitor Data Heart Rate from ECG 58 NIBP 141/71 NIBP BP-Mean 94 Respiration from ECG 30 SpO2 95 I&O: 07/06/20 07/07/20 07/08/20 06:59 06:59 06:59 Intake Total 1920 1350 300 Output Total 1350 1600 1895 Balance 277 -502 -9774 Result Diagrams: 07/08/20 03:13 07/08/20 03:13 Phys Exam - Physical Examination Mild respiratory distress, sitting on edge of bed, on BiPap Respiratory: no wheezing, no rales, no rhonchi, clear to auscultation bilateral Poor air movement Cardiovascular: RRR, no significant murmur, no rub Gastrointestinal: soft, non-tender, no distention, positive bowel sounds Musculoskeletal: no edema Neurological: non-focal Dx/Plan - Plan Plan: Hypoxic Respiratory Failure 2/2 COVID-19 PNA - Day 4 of decadron - s/p convalescent plasma - remdesivir to be completed today - tessalon, zofran, and benadryl as needed - home eliquis for thrombus PPX - Wean O2 support as tolerated - Consulted Dr. Maloney of pulmonology, appreciate recs - Atarax 50 mg X1 this AM for anxiety Leukocytosis - Likely 2/2 steroid tx, however will check procalcitonin given new bands on CBC diff HFrEF - daily weights - fluid restrict to 1800ml/day - pt denied any home meds other than lisinopril - coreg and atorvastatin started HTN - SBPs have been elevated is on lisinopril and coreg only - Hydralazine prn - Will consider additional medication Chronic Conditions: Alcohol use - ase scores have been stable - no concerns about withdrawal Afib, obesity - quiescent, continue home meds CODE: FULL PCP: She DVT PPX: home eliquis Dispo as of 07/07: Will wean O2 support as tolerated. Continue with standard COVID txt at this time. Addendum - Attending - Attending Attestation Date/Time: 07/08/20 3703 I personally evaluated the patient and discussed the management with Dr. Mcintosh. I agree with the History, Examination, Assessment and Plan documented above with any addition or exceptions noted below. Patient with some worsening overnight and had to be transitioned to Bipap therapy. Later in the morning, he was intubated due to worsening status. Given his decompensation along with his substantial increase in D-Dimer in setting of COVID infection, anticipate poor prognosis. Continue steroids, usual COVID care. Pulm on board.
[2020-07-08] MEDS ORDERED: hydrOXYzine 25 MG TAB PO SCH (07:45)
[2020-07-08] MEDS: Apixaban 5 MG TAB PO SCH ×2 (08:04→20:40)
[2020-07-08] MEDS: Carvedilol 3.125 MG TAB PO SCH ×2 (08:04→17:51)
[2020-07-08] MEDS: Lisinopril 20 MG TAB PO SCH ×2 (08:04→21:08)
[2020-07-08] MEDS: Dexamethasone 4 MG TAB PO SCH (08:05)
[2020-07-08] MEDS ORDERED: Propofol 1,000 MG/100 ML VIAL IV ONE (10:14)
[2020-07-08 10:47] LABS: Actual Bicarbonate (HCO3a) 23.4 mEq/L (22-28); Base Excess (BEa) -3.3 mEq/L (-2.0 to +3.0); CO2 Tension 48.8 mmHg (35.0-45.0); Calcium, Ionized (arterial) 1.12 mmol/L (1.12-1.30); Carboxyhemoglobin (COHb) 0.8 gm% (0.0-3.0); Hemoglobin (Hb) 13.2 g/dL (14.0-18.0); Potassium - ABG Lab 4.52 mmol/L (3.70-5.30)
[2020-07-08 10:52] LABS: Puncture Site LRA
--- NOTE | 2020-07-08 10:55 | RAD ---
RADIOGRAPH CHEST 1 VIEW: DATE: 07/08/2020 TIME: 10:40 AM HISTORY: 70-year-old male status post central line placement and status post intubation COMPARISON: 07/04/2020 FINDINGS: No central vascular catheter is visualized, despite the history. Supine positioning makes this study insensitive for the detection of pneumothorax. There is a new ETT distal tip at 2 cm superior to jodie. New catheter in esophagus, coursing through the medial aspect of the left upper quadrant of the abdom inal cavity, distal tip outside of field of view. Diffuse bilateral patchy and confluent airspace opacities throughout all lung randall are unchanged (r ecent CT demonstrates that these are groundglass lesions).. IMPRESSION: 1) status post intubation with endotracheal tube and esophagogastric tube. 2) no central vascular catheter visualized, despite history. 3) no interval change in severe bilateral COVID-19 pneumonia.
[2020-07-08] MEDS ORDERED: Vecuronium 10 MG VIAL ONE (11:27)
[2020-07-08] MEDS ORDERED: Lorazepam 2 MG/ML VIAL ONE (11:27)
[2020-07-08] MEDS ORDERED: Propofol BOLUS 1,000 MG/100 ML VIAL IV PRN (12:00)
[2020-07-08] MEDS ORDERED: DISCONTINUE PREVIOUS NARCOTIC PAIN MEDICATIONS AND BENZODIAZEPINES FS SCH (12:00)
[2020-07-08] MEDS ORDERED: Morphine 2 MG/ML VIAL SLOW IVP PRN (12:00)
[2020-07-08] MEDS ORDERED: Fentanyl BOLUS 250 ML IVPB PRN (12:00)
[2020-07-08] MEDS: Lorazepam 2 MG/ML VIAL SLOW IVP PRN ×2 (14:09→17:53)
[2020-07-08] MEDS: Vecuronium 10 MG VIAL IV PRN ×3 (14:09→23:14)
[2020-07-08] MEDS: Propofol 1,000 MG/100 ML VIAL IV PRN ×3 (14:15→23:13)
--- NOTE | 2020-07-08 16:56 | PRG ---
DATE OF SERVICE: 07/08/2020 SUBJECTIVE: Mr. Kelly felt worse today. It was felt by respiratory therapy that he was starting to look fatigued and I agreed. Anesthesia was gracious enough to intubate him. He was transferred to critical care unit, placed in the prone position. OBJECTIVE: LUNGS: He has equal breath sounds. HEART: Regular rate and rhythm. ABDOMEN: Soft. LABORATORY DATA: White count 23.1, hemoglobin 12.3, and platelets 153. Sodium 135, potassium 4.5, chloride 101, bicarb 21, BUN 29, and creatinine 0.89. IMPRESSION: COVID pneumonia, now status post intubation. PLAN: Continue supportive care. Critical care time 30 min. Job ID: [id number] [id number]
[2020-07-08] MEDS: Atorvastatin Calcium 40 MG TAB PO SCH (20:40)
[2020-07-08] MEDS: REMDESIVIR (EUA) 100 MG in Sodium Chloride 0.9% 250 ML 230 ML IV SCH (20:40)
[2020-07-09] MEDS: Diabetic Tussin 200 MG/10 ML UDCUP PO SCH ×6 (00:11→20:44)
[2020-07-09] MEDS: Propofol 1,000 MG/100 ML VIAL IV PRN ×4 (03:50→15:50)
--- NOTE | 2020-07-09 05:30 | PDOC.FM ---
- Subjective Subjective: Patient intubated and sedated. Prone position. - Objective Vital Signs & Weight: Vital Signs (12 hours) Temp Pulse Resp BP Pulse Ox 07/09/20 04:00 98.2 F 07/09/20 03:38 21 H 07/09/20 00:00 98 F 76 20 100/65 07/08/20 21:58 73 105/61 07/08/20 21:08 97/63 07/08/20 20:00 98.2 F 07/08/20 19:59 99 07/08/20 19:48 99 07/08/20 18:58 82 97/63 Weight Admit Weight 128.5 kg Weight 128.395 kg Most Recent Monitor Data Heart Rate from ECG 72 NIBP 92/59 NIBP BP-Mean 70 Respiration from ECG 20 SpO2 97 I&O: 07/07/20 07/08/20 07/09/20 06:59 06:59 06:59 Intake Total 1350 870 625 Output Total 1600 1895 990 Balance -366 -6358 -889 Result Diagrams: 07/09/20 05:26 07/09/20 05:26 Phys Exam - Physical Examination intubated and sedated HEENT: moist MMs Neck: supple, full ROM Respiratory: no wheezing, no rales, no rhonchi Cardiovascular: RRR, no significant murmur Musculoskeletal: no edema proned sedated Skin: no rash Dx/Plan (1) Acute respiratory failure with hypoxia Code(s): J96.01 - ACUTE RESPIRATORY FAILURE WITH HYPOXIA Status: Acute (2) Pneumonia due to COVID-19 virus Code(s): U07.1 - COVID-19; J12.89 - OTHER VIRAL PNEUMONIA Status: Acute - Plan Plan: Plan: Hypoxic Respiratory Failure 2/2 COVID-19 PNA - Patient became fatigued and intubated 07/08, currently on Bi-level, FiO2 80% and satting well -Continue respiratory support with weaning as tolerated - Continue IV decadron, + protonix for GI ppx - s/p convalescent plasma - s/p remdesivir - home eliquis for thrombus PPX - Consulted Dr. 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 Patient has poor prognosis at this time. Addendum - Attending - Attending Attestation Date/Time: 07/09/20 0440 I personally evaluated the patient and discussed the management with Dr. Morales. I agree with the History, Examination, Assessment and Plan documented above with any addition or exceptions noted below.
[2020-07-09 06:34] LABS: Hemoglobin 10.6 g/dL (14.0-18.0); Mean Corpuscular HGB CONC 32.3 g/dL (32.0-36.0); Mean Corpuscular Hemoglobin 30.6 pg (27.0-31.0); Mean Corpuscular Volume 94.6 fL (78.0-98.0); Mean Platelet Volume 9.7 fL (7.4-10.4); Platelet Count 129 thou/uL (130-400); RBC Distribution Width 13.3 % (11.5-14.5); Red Blood Cell (RBC) Count 3.48 mill/uL (4.70-6.10); White Blood Cell (WBC) Count 32.5 thou/uL (4.8-10.8)
[2020-07-09 06:46] LABS: Anion Gap 17 mmol/L (10-20); BUN (Urea Nitrogen) 51 mg/dL (8.4-25.7); Calc. Creatinine Clearance 0 mL/min (70-130); Carbon Dioxide 19 mmol/L (23-31); Chloride 104 mmol/L (98-107); Potassium 4.9 mmol/L (3.5-5.1); Sodium 135 mmol/L (136-145)
[2020-07-09 06:47] LABS: ALT (SGPT) 26 U/L (8-55); AST (SGOT) 124 U/L (5-34); Albumin 3.3 g/dL (3.4-4.8); Alkaline Phosphatase 79 U/L (40-110); Bilirubin, Total 1.3 mg/dL (0.2-1.2); Calcium 7.8 mg/dL (7.8-10.44); Globulin 3.7 g/dL (2.4-3.5); Glucose 101 mg/dL (83-110)
[2020-07-09 07:30] LABS: Band 6 % (5-11); Lymphocytes 3 % (21-51); MDiff Complete? YES; Metamyelocyte 1 % (0-0); Monocytes 24 % (0-10); Myelocyte 3 % (0-0); Neutrophil 63 % (42-75); Platelet Morphology Comment Appears Decreased; Polychromasia SLIGHT = 2-3 cells (100X) (0-2/hpf)
[2020-07-09 07:35] LABS: Base Excess (BEa) -3.2 mEq/L (-2.0 to +3.0); CO2 Tension 34.4 mmHg (35.0-45.0); Calcium, Ionized (arterial) 1.08 mmol/L (1.12-1.30); Carboxyhemoglobin (COHb) 0.2 gm% (0.0-3.0); Hemoglobin (Hb) 11.4 g/dL (14.0-18.0); O2 Tension (PaO2), arterial 82.7 mmHg (> 70.0); Potassium - ABG Lab 4.78 mmol/L (3.70-5.30)
[2020-07-09 08:14] LABS: Puncture Site RRA
[2020-07-09] MEDS: Lisinopril 20 MG TAB PO SCH ×2 (08:17→23:56)
[2020-07-09] MEDS: Apixaban 5 MG TAB PO SCH ×2 (08:56→20:43)
[2020-07-09] MEDS: Carvedilol 3.125 MG TAB PO SCH ×2 (08:56→15:41)
[2020-07-09] MEDS: Dexamethasone Sod Phosphate 6 MG in Sodium Chloride 0.9% 50 ML IVPB SCH (08:56)
[2020-07-09] MEDS: Pantoprazole 40 MG VIAL IVP SCH (08:58)
[2020-07-09] MEDS ORDERED: FLU VACC QS2020-21(65YR UP)/PF 240 MCG/0.7 ML SYRINGE IM ONE (09:00)
[2020-07-09] MEDS: Lorazepam 2 MG/ML VIAL SLOW IVP PRN (09:17)
[2020-07-09] MEDS: Lactated Ringer's 1,000 ML IV SCH ×2 (10:41→23:58)
--- NOTE | 2020-07-09 14:15 | PRG ---
DATE OF SERVICE: 07/09/2020 SUBJECTIVE: David Kelly continues to be prone ventilated. We turned his FiO2 down from 70% to 55% during the lunch hour. OBJECTIVE: VITAL SIGNS: His blood pressures in the 90s, heart rate in 60s respiratory rates in 20s. LUNGS: Remarkable for coarse equal breath sounds. HEART: Regular rate and rhythm. ABDOMEN: Soft while he is in the prone position. LABORATORY DATA: White count 32.5, hemoglobin 10.6, platelets 129. Sodium 135, potassium 4.9, chloride 104, bicarb 19, BUN 51, creatinine 1.3. PH of 7.4, CO2 of 34, pO2 of 82. IMPRESSION: COVID pneumonia, starting the second day of prone ventilation, hopefully to place him back in supine position tomorrow. He is stable at this time. CRITICAL CARE TIME: 30 minutes. Job ID: [id number]
[2020-07-09] MEDS ORDERED: Lactated Ringer's 500 ML IV SCH (16:00)
[2020-07-09] MEDS: Atorvastatin Calcium 40 MG TAB PO SCH (20:43)
[2020-07-09] MEDS: Vecuronium 10 MG VIAL IV PRN (20:44)
[2020-07-10] MEDS: Propofol 1,000 MG/100 ML VIAL IV PRN ×4 (00:53→16:53)
[2020-07-10] MEDS: Diabetic Tussin 200 MG/10 ML UDCUP PO SCH ×6 (02:27→19:48)
[2020-07-10 04:42] LABS: ALT (SGPT) 47 U/L (8-55); AST (SGOT) 158 U/L (5-34); Albumin 3.1 g/dL (3.4-4.8); Alkaline Phosphatase 67 U/L (40-110); Anion Gap 18 mmol/L (10-20); BUN (Urea Nitrogen) 86 mg/dL (8.4-25.7); Bilirubin, Total 1.1 mg/dL (0.2-1.2); Calc. Creatinine Clearance 55 mL/min (70-130); Calcium 7.4 mg/dL (7.8-10.44); Carbon Dioxide 18 mmol/L (23-31); Chloride 105 mmol/L (98-107); Globulin 3.5 g/dL (2.4-3.5); Glucose 125 mg/dL (83-110); Potassium 4.8 mmol/L (3.5-5.1); Protein, Total 6.6 g/dL (5.8-8.1); Sodium 136 mmol/L (136-145)
[2020-07-10 04:47] LABS: Band 3 % (5-11); Hemoglobin 9.2 g/dL (14.0-18.0); Hypochromia SLIGHT = 6-15 cells (100X) (0-5/hpf); Lymphocytes 6 % (21-51); MDiff Complete? YES; Mean Corpuscular HGB CONC 32.1 g/dL (32.0-36.0); Mean Corpuscular Hemoglobin 30.1 pg (27.0-31.0); Mean Corpuscular Volume 93.8 fL (78.0-98.0); Mean Platelet Volume 9.4 fL (7.4-10.4); Monocytes 25 % (0-10); Neutrophil 66 % (42-75); Platelet Count 131 thou/uL (130-400); Platelet Morphology Comment Appears Adequate; RBC Distribution Width 13.3 % (11.5-14.5); Red Blood Cell (RBC) Count 3.06 mill/uL (4.70-6.10); White Blood Cell (WBC) Count 35.2 thou/uL (4.8-10.8)
[2020-07-10] MEDS: Lactated Ringer's 1,000 ML IV SCH ×2 (04:53→13:46)
--- NOTE | 2020-07-10 05:29 | PDOC.FM ---
- Subjective Subjective: Intubated and sedated. Prone position. - Objective Vital Signs & Weight: Vital Signs (12 hours) Temp Pulse Resp BP Pulse Ox 07/10/20 04:00 98.3 F 07/10/20 03:37 21 H 07/10/20 02:14 62 93/53 L 07/10/20 02:00 20 07/10/20 00:00 98.9 F 07/09/20 23:56 89/49 L 07/09/20 23:40 21 H 07/09/20 22:16 64 89/49 L 07/09/20 22:00 22 H 07/09/20 20:00 99.1 F 96 07/09/20 19:54 23 H 07/09/20 18:34 67 85/50 L 07/09/20 18:00 20 Weight Admit Weight 128.5 kg Weight 128.96 g Most Recent Monitor Data Heart Rate from ECG 72 NIBP 114/79 NIBP BP-Mean 90 Respiration from ECG 20 SpO2 96 I&O: 07/08/20 07/09/20 07/10/20 06:59 06:59 06:59 Intake Total 870 1309 1673 Output Total 1895 1040 510 Balance -2934 314 6848 Result Diagrams: 07/10/20 03:35 07/10/20 03:35 Phys Exam - Physical Examination intubated and sedated HEENT: moist MMs, sclera anicteric Neck: supple, full ROM Respiratory: no wheezing, no rales, no rhonchi Cardiovascular: RRR, no significant murmur Musculoskeletal: no edema varicose veins; prone position sedated Skin: no rash Dx/Plan (1) Acute respiratory failure with hypoxia Code(s): J96.01 - ACUTE RESPIRATORY FAILURE WITH HYPOXIA Status: Acute (2) Pneumonia due to COVID-19 virus Code(s): U07.1 - COVID-19; J12.89 - OTHER VIRAL PNEUMONIA Status: Acute - Plan Plan: Hypoxic Respiratory Failure 2/2 COVID-19 PNA - Patient became fatigued and intubated 07/08, currently on Bi-level, FiO2 65% and satting well -Continue respiratory support with weaning as tolerated - Continue IV decadron, + protonix for GI ppx - s/p convalescent plasma - s/p remdesivir - home eliquis for thrombus PPX - Consulted Dr. Maloney from pulmonology, appreciate recs - Tube feeds started 07/09 - S/p albumin and increase of fluids to 100ml/hr, blood pressure has improved - Urine output 35-45ml/hr overnight, can consider reducing fluids as tube feeds now running - Palliative care consulted SUMEET -Cr 2.25 up from baseline of 0.8 -creatinine worsened from yesterday despite adding fluids -urine output 35-45ml/hr overnight -may be a result of hypotension with propofol -LR increased from 75ml/hr to 100ml/hr and albumin received 07/09 -will continue to monitor Leukocytosis - Likely 2/2 steroid tx - Left shift improved - 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 Continue to discuss goals of care with family Addendum - Attending - Attending Attestation Date/Time: 07/10/20 8439 I personally evaluated the patient and discussed the management with Dr. Morales. I agree with the History, Examination, Assessment and Plan documented above with any addition or exceptions noted below. Patient remains critically ill with poor prognosis. He has been oxygenating better in prone position, but had hypotension today with return to supine position. His renal function is also declining, ?ATN. Monitor UOP. Pulm on board.
[2020-07-10] MEDS: Lisinopril 20 MG TAB PO SCH ×2 (07:21→22:15)
[2020-07-10] MEDS: Apixaban 5 MG TAB PO SCH ×2 (07:21→20:24)
[2020-07-10] MEDS: Carvedilol 3.125 MG TAB PO SCH ×2 (07:21→17:06)
[2020-07-10] MEDS: Pantoprazole 40 MG VIAL IVP SCH (07:22)
[2020-07-10] MEDS: Dexamethasone Sod Phosphate 6 MG in Sodium Chloride 0.9% 50 ML IVPB SCH (07:51)
[2020-07-10 08:03] LABS: Actual Bicarbonate (HCO3a) 18.2 mEq/L (22-28); Base Excess (BEa) -5.9 mEq/L (-2.0 to +3.0); CO2 Tension 31.3 mmHg (35.0-45.0); Calcium, Ionized (arterial) 1.09 mmol/L (1.12-1.30); Hemoglobin (Hb) 10.6 g/dL (14.0-18.0); O2 Tension (PaO2), arterial 105.6 mmHg (> 70.0); Potassium - ABG Lab 4.67 mmol/L (3.70-5.30); pH, Arterial 7.38 (7.35-7.45)
[2020-07-10 08:05] LABS: ALV-art Gradient 318.725 mmHg (0-20); Puncture Site LRA
[2020-07-10] MEDS: Vecuronium 10 MG VIAL IV PRN (09:45)
[2020-07-10] MEDS: Lorazepam 2 MG/ML VIAL SLOW IVP PRN (09:45)
--- NOTE | 2020-07-10 10:16 | RAD ---
CHEST 1 VIEW: HISTORY: Followup COVID pneumonia. COMPARISON: 07/08/2020. FINDINGS: Life support tubes remain in place. Bilateral mostly alveolar and ground-glass opacity changes throu ghout both lungs minimally less overall dense when compared to the prior study. No significant cardi omegaly or pleural effusion. IMPRESSION: Stable to possibly minimally improving bilateral COVID pneumonia. POS: RRE
[2020-07-10] MEDS ORDERED: Norepinephrine 8 MG/0.9% NS 250 ML ONE (11:40)
[2020-07-10] MEDS ORDERED: Norepinephrine 8 MG in Dextrose 5% in Water 242 ML IVPB PRN (11:45)
[2020-07-10] MEDS ORDERED: Lactated Ringer's 500 ML IV SCH (12:00)
[2020-07-10] MEDS: fentaNYL Citrate/PF 2,000 MCG in Sodium Chloride 0.9% 60 ML IV SCH (12:01)
[2020-07-10] MEDS: Norepinephrine 8 MG/0.9% NS 8 MG in Premix Bag 1 BAG IVPB SCH (12:02)
--- NOTE | 2020-07-10 14:25 | PDOC.OP ---
Operative Note - Operative Note Operative Note: INDICATION: Hypotension requiring pressor support PROCEDURE RESTRICTIVE PREPARATION OPERATOR: Rob Mcintosh MD ATTENDING PHYSICIAN: Werner Watters MD In Attendance Y Ultrasound Used: Y CONSENT: Consent was obtained from his son Benja prior to the procedure. Indications, risks, and benefits were explained at length. PROCEDURE SUMMARY: The [facility] Central Line Insertion Practices form was completed by an independent observer starting with the first handwash prior to starting sterile technique. A time out was performed. My hands were washed immediately prior to the procedure. I wore a surgical cap, mask with protective eyewear, sterile gown and sterile gloves throughout the procedure. The LEFT inguinal region was prepped using chlorhexidine scrub and draped in sterile fashion using a full drape and sterile probe cover employed. After direct visualization of femoral vein under ultrasound, the introducer needle was inserted medial to the femoral artery, inferior to the inguinal crease and into the femoral vein. Venous blood was withdrawn. The syringe was removed and a guidewire was advanced into the introducer needle. A small incision was made at the skin surface with a scalpel and the introducer needle was exchanged for a dilator over the guidewire. After appropriate dilation was obtained, the dilator was exchanged over the wire for a triple lumen central venous catheter. The wire was removed and the catheter was sutured in place at 1 cm. A sterile sorbaview shield was placed over the catheter at the insertion site. The patient tolerated the procedure without any hemodynamic compromise. At time of procedure completion, all ports aspirated and flushed properly. Estimated blood loss is 5mL. ATTENDING ADDENDUM: I was present for and supervised the entire procedure. I agree with the above documentation.
--- NOTE | 2020-07-10 17:12 | PRG ---
DATE OF SERVICE: 07/10/2020 SUBJECTIVE: Mr. Kelly remains mechanically ventilated. OBJECTIVE: VITAL SIGNS: Blood pressure is 116/64, heart rate is 49, respiratory rates in the 20s. LUNGS: Unchanged. HEART: Unchanged. ABDOMEN: Unchanged. LABORATORY DATA: White count 35, hemoglobin 9.2, platelets 131. Sodium 136, potassium 4.8, chloride 105, bicarb 18, BUN 86, creatinine up from 1.3 yesterday. Intake and outputs, positive 1795. IMPRESSION: 1. COVID pneumonia. 2. Acute on chronic kidney disease with declining renal function in spite of a positive fluid balance. 3. Borderline anemia. This will continue to be watched. 4. Status post prone ventilation for 48 hours. His gas exchanges improved. We will continue to follow. Supportive care. Critical care time, 30 minutes. Job ID: [id number]
[2020-07-10] MEDS: Atorvastatin Calcium 40 MG TAB PO SCH (20:24)
[2020-07-11] MEDS: Diabetic Tussin 200 MG/10 ML UDCUP PO SCH ×6 (00:13→21:02)
[2020-07-11] MEDS: Lactated Ringer's 1,000 ML IV SCH ×2 (02:47→08:22)
[2020-07-11] MEDS: Norepinephrine 8 MG/0.9% NS 8 MG in Premix Bag 1 BAG IVPB SCH (02:53)
[2020-07-11 05:18] LABS: ALT (SGPT) 72 U/L (8-55); AST (SGOT) 162 U/L (5-34); Albumin 2.9 g/dL (3.4-4.8); Alkaline Phosphatase 60 U/L (40-110); Anion Gap 16 mmol/L (10-20); BUN (Urea Nitrogen) 85 mg/dL (8.4-25.7); Bilirubin, Total 0.9 mg/dL (0.2-1.2); Calc. Creatinine Clearance 0 mL/min (70-130); Calcium 7.5 mg/dL (7.8-10.44); Carbon Dioxide 20 mmol/L (23-31); Chloride 106 mmol/L (98-107); Globulin 3.7 g/dL (2.4-3.5); Glucose 139 mg/dL (83-110); Protein, Total 6.6 g/dL (5.8-8.1); Sodium 137 mmol/L (136-145)
--- NOTE | 2020-07-11 05:39 | PDOC.FM ---
- Subjective Subjective: Patient intubated and sedated. Central line in place. No acute events overnight. - Objective Vital Signs & Weight: Vital Signs (12 hours) Temp Pulse Resp BP Pulse Ox 07/11/20 04:00 98.5 F 20 07/11/20 02:15 65 07/11/20 02:00 20 07/11/20 00:00 98.8 F 07/10/20 23:55 20 07/10/20 22:15 99/61 07/10/20 22:00 20 07/10/20 20:09 53 L 07/10/20 20:00 98.4 F 20 96 07/10/20 18:00 20 Weight Admit Weight 128.5 kg Weight 130.1 g Most Recent Monitor Data Heart Rate from ECG 59 NIBP 113/55 NIBP BP-Mean 74 Respiration from ECG 20 SpO2 97 I&O: 07/09/20 07/10/20 07/11/20 06:59 06:59 06:59 Intake Total 1309 2345 1923.3 Output Total 0940 235 5334 Balance 269 1795 -106.7 Result Diagrams: 07/11/20 04:00 07/11/20 04:00 Phys Exam - Physical Examination intubated and sedated HEENT: moist MMs Neck: supple, full ROM coarse breath sounds throughout Cardiovascular: RRR, no significant murmur Gastrointestinal: soft, no distention Musculoskeletal: no edema sedated Skin: no rash Deviation from normal: varicose veins Dx/Plan (1) Acute respiratory failure with hypoxia Code(s): J96.01 - ACUTE RESPIRATORY FAILURE WITH HYPOXIA Status: Acute (2) Pneumonia due to COVID-19 virus Code(s): U07.1 - COVID-19; J12.89 - OTHER VIRAL PNEUMONIA Status: Acute - Plan Plan: Hypoxic Respiratory Failure 2/2 COVID-19 PNA - Patient became fatigued and intubated 07/08, currently on Bi-level, FiO2 40% and satting well -Continue respiratory support with weaning as tolerated - Continue IV decadron, + protonix for GI ppx - s/p convalescent plasma - s/p remdesivir - home eliquis for thrombus PPX - Consulted Dr. Maloney from pulmonology, appreciate recs - Tube feeds started 07/09 - S/p albumin and increase of fluids to 100ml/hr -L femoral central line placed 07/10, as patient's pressures were 70s/30s and required levo (now running @ 5) - Urine output 50-150ml/hr overnight; will continue to monitor urine output closely - Palliative care consulted - Start cefepime 07/11 due to elevated WBC. See below SUMEET -Cr 1.70 up from baseline of 0.8 but improved from 2.25 yesterday -urine output improved overnight -Continue LR @ 100ml/hr -will continue to monitor fluid balance closely Normocytic Anemia -hgb 9.3, stable from yesterday -will continue to monitor Leukocytosis - Possibly 2/2 steroid tx. Procal negative. Blood and urine cultures negative. Does not appear to be bacterial respiratory infection based on procal but due to the severity of the patient's illness cefepime started 07/11 HFrEF - daily weights - Patient on LR @ 100ml/hr and kidney function improved; continue to monitor fluid balance - pt denied any home meds other than lisinopril - coreg and atorvastatin started HTN - SBPs have been reduced overnight due to propofol; coreg and lisinopril held - Hydralazine prn Alcohol use - ase scores have been stable - no concerns about withdrawal Afib, obesity - quiescent, continue home meds CODE: FULL PCP: She DVT PPX: home eliquis Diet: Tube feeds Dispo: Admitted to the CCU for respiratory support while intubated, IVF, and tube feeds. Addendum - Attending - Attending Attestation Date/Time: 07/11/20 0139 I personally evaluated the patient and discussed the management with Dr. Morales. I agree with the History, Examination, Assessment and Plan documented above with any addition or exceptions noted below. Patient overall stable, but critical. O2 status and Pulm status overall stable. His WBC is increasing, will expand abx coverage. Overall prognosis poor. Renal function somewhat improved.
[2020-07-11 05:53] LABS: Hemoglobin 9.3 g/dL (14.0-18.0); Mean Corpuscular HGB CONC 33.2 g/dL (32.0-36.0); Mean Corpuscular Hemoglobin 31.7 pg (27.0-31.0); Mean Corpuscular Volume 95.3 fL (78.0-98.0); Mean Platelet Volume 9.4 fL (7.4-10.4); Platelet Count 138 thou/uL (130-400); RBC Distribution Width 13.4 % (11.5-14.5); Red Blood Cell (RBC) Count 2.93 mill/uL (4.70-6.10); White Blood Cell (WBC) Count 40.9 thou/uL (4.8-10.8)
[2020-07-11 05:56] LABS: Band 9 % (5-11); Lymphocytes 2 % (21-51); MDiff Complete? YES; Metamyelocyte 2 % (0-0); Monocytes 20 % (0-10); Myelocyte 6 % (0-0); Neutrophil 61 % (42-75)
[2020-07-11] MEDS: Lisinopril 20 MG TAB PO SCH ×2 (08:07→21:02)
[2020-07-11] MEDS: Carvedilol 3.125 MG TAB PO SCH ×2 (08:07→17:03)
[2020-07-11 08:08] LABS: Actual Bicarbonate (HCO3a) 19.5 mEq/L (22-28); Base Excess (BEa) -4.3 mEq/L (-2.0 to +3.0); CO2 Tension 31.3 mmHg (35.0-45.0); Carboxyhemoglobin (COHb) 0.5 gm% (0.0-3.0); Hemoglobin (Hb) 9.5 g/dL (14.0-18.0); O2 Tension (PaO2), arterial 84.7 mmHg (> 70.0); Potassium - ABG Lab 4.89 mmol/L (3.70-5.30); pH, Arterial 7.41 (7.35-7.45)
[2020-07-11 08:09] LABS: ALV-art Gradient 161.375 mmHg (0-20); Puncture Site RRA
[2020-07-11] MEDS: Propofol 1,000 MG/100 ML VIAL IV PRN ×2 (08:19→21:03)
[2020-07-11] MEDS: Apixaban 5 MG TAB PO SCH ×2 (08:19→21:02)
[2020-07-11] MEDS: Dexamethasone Sod Phosphate 6 MG in Sodium Chloride 0.9% 50 ML IVPB SCH (08:19)
[2020-07-11] MEDS: Pantoprazole 40 MG VIAL IVP SCH (08:19)
[2020-07-11] MEDS ORDERED: Albumin 25% 25 GM/100 ML BOT IVPB SCH (09:28)
--- NOTE | 2020-07-11 09:34 | RAD ---
Chest one view HISTORY: COVID pneumonia. Follow-up. COMPARISON: 07/10/2020. FINDINGS: Cardiac silhouette is magnified by projection. Pulmonary vasculature upper limits of normal . Mediastinum is midline. Lines and tubes unchanged in position. Ill-defined infiltrates, predominantly at the lung bases, are similar in appearance to the prior stud y. No new areas of infiltrate. No pneumothorax. IMPRESSION : Bilateral lower lobe infiltrates and other findings are stable.
--- NOTE | 2020-07-11 09:57 | PRG ---
DATE OF SERVICE: 07/11/2020 SUBJECTIVE: A 70-year-old gentleman, remains in the ICU, intubated in the vent, sedated. OBJECTIVE: VITAL SIGNS: Temperature is 98, blood pressure 99/61, respirations 20, sats 90%. His I's and O's positive. CHEST: Rhonchi, crackles. CARDIAC: Normal S1 and S2. No gallops. ABDOMEN: No masses. LABORATORY DATA: White count 40,000, H and H are 9 and 27, platelet count is normal. He has 20 monocytes, 6 . PO2 is 84, pCO2 is 31, pH 7.41 on a bilevel rate of 20. Low PEEP is 14. ASSESSMENT: 1. Acute on chronic respiratory failure, COVID positive pneumonia. 2. Marked leukocytosis, question whether he has myeloproliferative disorder or renal failure. PLAN: 1. The patient is not weanable. Empiric antibiotics started. It is possible he may have myeloproliferative disorder. 2. Worsening azotemia. We will change his IV fluids to normal saline. Continue nutrition and steroids. One-half hour of critical care time. Job ID: [id number]
[2020-07-11] MEDS: Cefepime 1 GM in Sodium Chloride 0.9% 100 ML IVPB SCH ×2 (10:15→22:14)
[2020-07-11] MEDS: Sodium Chloride 0.9% 1,000 ML IV SCH ×2 (11:08→21:02)
[2020-07-11 14:32] LABS: Hemoglobin 8.8 g/dL (14.0-18.0); Mean Corpuscular HGB CONC 32.3 g/dL (32.0-36.0); Mean Platelet Volume 9.3 fL (7.4-10.4); Platelet Count 144 thou/uL (130-400); RBC Distribution Width 13.3 % (11.5-14.5); Red Blood Cell (RBC) Count 2.84 mill/uL (4.70-6.10)
[2020-07-11 14:49] LABS: Band 10 % (5-11); Lymphocytes 1 % (21-51); MDiff Complete? YES; Metamyelocyte 2 % (0-0); Monocytes 23 % (0-10); Myelocyte 3 % (0-0); Neutrophil 58 % (42-75); Platelet Morphology Comment Appears Adequate; Polychromasia SLIGHT = 2-3 cells (100X) (0-2/hpf); Reactive Lymphocytes 3 % (0-10)
[2020-07-11] MEDS ORDERED: Cefepime 1 GM in Sodium Chloride 0.9% 100 ML IVPB SCH (21:00)
[2020-07-11] MEDS: Atorvastatin Calcium 40 MG TAB PO SCH (21:02)
[2020-07-11 21:28] LABS: Anion Gap 14 mmol/L (10-20); BUN (Urea Nitrogen) 84 mg/dL (8.4-25.7); Calc. Creatinine Clearance 0 mL/min (70-130); Calcium 7.5 mg/dL (7.8-10.44); Carbon Dioxide 21 mmol/L (23-31); Chloride 110 mmol/L (98-107); Glucose 152 mg/dL (83-110); Magnesium 3.1 mg/dL (1.6-2.6); Potassium 5.6 mmol/L (3.5-5.1); Sodium 139 mmol/L (136-145)
[2020-07-12] MEDS: Diabetic Tussin 200 MG/10 ML UDCUP PO SCH ×6 (01:00→21:05)
[2020-07-12 05:09] LABS: ALT (SGPT) 78 U/L (8-55); AST (SGOT) 147 U/L (5-34); Albumin 3.2 g/dL (3.4-4.8); Alkaline Phosphatase 59 U/L (40-110); Anion Gap 15 mmol/L (10-20); BUN (Urea Nitrogen) 91 mg/dL (8.4-25.7); Bilirubin, Total 0.9 mg/dL (0.2-1.2); Calc. Creatinine Clearance 0 mL/min (70-130); Calcium 7.4 mg/dL (7.8-10.44); Carbon Dioxide 20 mmol/L (23-31); Chloride 111 mmol/L (98-107); Globulin 3.5 g/dL (2.4-3.5); Glucose 123 mg/dL (83-110); Potassium 5.5 mmol/L (3.5-5.1); Protein, Total 6.7 g/dL (5.8-8.1); Sodium 140 mmol/L (136-145)
[2020-07-12 05:16] LABS: White Blood Cell (WBC) Count 43.9 thou/uL (4.8-10.8)
--- NOTE | 2020-07-12 05:22 | PDOC.FM ---
- Subjective Subjective: Patient intubated and sedated. 2 rounds of vtach overnight. Decreased urine output. - Objective Vital Signs & Weight: Vital Signs (12 hours) Temp Pulse Resp BP Pulse Ox 07/12/20 04:46 61 07/12/20 04:00 20 07/12/20 02:00 20 07/12/20 01:00 97.9 F 57 L 07/12/20 00:00 20 07/11/20 22:00 20 07/11/20 21:40 51 L 07/11/20 21:02 109/55 L 07/11/20 20:00 97.5 F L 20 98 07/11/20 18:58 62 07/11/20 18:00 22 H Weight Admit Weight 128.5 kg Weight 130.1 g Most Recent Monitor Data Heart Rate from ECG 58 NIBP 120/58 NIBP BP-Mean 78 Respiration from ECG 21 SpO2 97 I&O: 07/10/20 07/11/20 07/12/20 06:59 06:59 06:59 Intake Total 2345 4000.0 2349 Output Total 550 2130 250 Balance 1795 1870.0 2099 Result Diagrams: 07/12/20 03:30 07/12/20 03:30 Phys Exam - Physical Examination intubated and sedated HEENT: moist MMs Neck: supple, full ROM coarse breath sounds throughout Cardiovascular: RRR, no significant murmur Gastrointestinal: soft, no distention, positive bowel sounds Musculoskeletal: no edema sedated Skin: no rash Dx/Plan (1) Acute respiratory failure with hypoxia Code(s): J96.01 - ACUTE RESPIRATORY FAILURE WITH HYPOXIA Status: Acute (2) Pneumonia due to COVID-19 virus Code(s): U07.1 - COVID-19; J12.89 - OTHER VIRAL PNEUMONIA Status: Acute - Plan Plan: Hypoxic Respiratory Failure 2/2 COVID-19 PNA - Patient became fatigued and intubated 07/08, currently on Bi-level, FiO2 40% and satting well -Continue respiratory support with weaning as tolerated - Continue IV decadron, + protonix for GI ppx - s/p convalescent plasma - s/p remdesivir - home eliquis for thrombus PPX - Consulted Dr. Maloney from pulmonology, appreciate recs - Tube feeds started 07/09, running @ 40ml/hr - S/p albumin and increase of fluids to 100ml/hr (switched to NS for azotemia by pulm) -L femoral central line placed 07/10, as patient's pressures were 70s/30s and required levo (now running @ 3.7) - Urine output 5-35ml/hr overnight; will continue to monitor urine output closely - Palliative care consulted - Start cefepime 07/11 due to elevated WBC. See below SUMEET -Cr 1.86 up from baseline of 0.8 -urine output declined yesterday and overnight -Continue NS @ 100ml/hr -will continue to monitor fluid balance closely -consider nephro consult Normocytic Anemia -hgb 9.0 -will continue to monitor Leukocytosis - Possibly 2/2 steroid tx. Procal negative. Blood and urine cultures negative. Does not appear to be bacterial respiratory infection based on procal but due to the severity of the patient's illness cefepime started 07/11 HFrEF - daily weights - Patient on NS @ 100ml/hr and kidney function declined; continue to monitor fluid balance - pt denied any home meds other than lisinopril - coreg and atorvastatin started HTN - SBPs have been reduced overnight due to propofol; coreg and lisinopril held - Hydralazine prn Alcohol use - ase scores have been stable - no concerns about withdrawal Afib, obesity - quiescent, continue home meds CODE: FULL PCP: She DODD PPX: home eliquis Diet: Tube feeds Dispo: Admitted to the CCU for respiratory support while intubated, IVF, and tube feeds. Addendum - Attending - Attending Attestation Date/Time: 07/12/20 0755 I personally evaluated the patient and discussed the management with Dr. Morales. I agree with the History, Examination, Assessment and Plan documented above with any addition or exceptions noted below. Patient continues to be critically ill. Continues to require Vent support for his COVID pneumonia. UOP dropped again overnight despite IVF and albumin infusion. Renal function overall stable. Mild hyperkalemia, no urgent need for intervention but will administer kayexolate and monitor. WBC continues to uptrend, on empiric abx though no evidence of serious bacterial infection. Inflammatory markers finally downtrending some. Monocytosis that has been chronic concerns me for MPD. Overall poor prognosis, will discuss with family.
[2020-07-12] MEDS: Sodium Chloride 0.9% 1,000 ML IV SCH ×2 (05:38→09:40)
[2020-07-12] MEDS: Propofol 1,000 MG/100 ML VIAL IV PRN ×3 (05:39→23:59)
[2020-07-12 06:10] LABS: Band 8 % (5-11); Lymphocytes 5 % (21-51); MDiff Complete? YES; Mean Corpuscular HGB CONC 32.1 g/dL (32.0-36.0); Mean Corpuscular Hemoglobin 30.8 pg (27.0-31.0); Mean Corpuscular Volume 95.8 fL (78.0-98.0); Mean Platelet Volume 9.1 fL (7.4-10.4); Monocytes 20 % (0-10); Myelocyte 4 % (0-0); Neutrophil 62 % (42-75); Platelet Count 159 thou/uL (130-400); RBC Distribution Width 13.6 % (11.5-14.5); Reactive Lymphocytes 1 % (0-10); Red Blood Cell (RBC) Count 2.91 mill/uL (4.70-6.10)
[2020-07-12 08:06] LABS: Actual Bicarbonate (HCO3a) 17.7 mEq/L (22-28); Base Excess (BEa) -6.2 mEq/L (-2.0 to +3.0); Calcium, Ionized (arterial) 1.12 mmol/L (1.12-1.30); Carboxyhemoglobin (COHb) 0.3 gm% (0.0-3.0); Hemoglobin (Hb) 8.6 g/dL (14.0-18.0); O2 Tension (PaO2), arterial 92.1 mmHg (> 70.0); Potassium - ABG Lab 5.24 mmol/L (3.70-5.30)
[2020-07-12 08:08] LABS: Puncture Site RRA
[2020-07-12] MEDS ORDERED: Albumin 25% 25 GM/100 ML BOT IVPB SCH (08:11)
--- NOTE | 2020-07-12 08:45 | RAD ---
Chest one view HISTORY:: Pneumonia. Follow-up. COMPARISON: 07/31/2020. FINDINGS: Cardiac silhouette is magnified by projection. Pulmonary vasculature upper limits of normal . Mediastinum is midline. Lines and tubes unchanged in position. Patchy areas of ill-defined infiltrates scattered throughout each lung are similar in appearance to t he prior exam. No evidence of pneumothorax. IMPRESSION : Patchy bilateral infiltrates and other findings are stable.
[2020-07-12] MEDS: Lisinopril 20 MG TAB PO SCH ×2 (09:00→21:05)
[2020-07-12] MEDS: Apixaban 5 MG TAB PO SCH ×2 (09:16→21:05)
[2020-07-12] MEDS: Pantoprazole 40 MG VIAL IVP SCH (09:39)
[2020-07-12] MEDS: Cefepime 1 GM in Sodium Chloride 0.9% 100 ML IVPB SCH ×2 (09:41→21:06)
[2020-07-12] MEDS: Carvedilol 3.125 MG TAB PO SCH ×2 (09:43→18:20)
[2020-07-12] MEDS: Dexamethasone Sod Phosphate 6 MG in Sodium Chloride 0.9% 50 ML IVPB SCH (10:52)
[2020-07-12 14:32] LABS: Anion Gap 15 mmol/L (10-20); BUN (Urea Nitrogen) 103 mg/dL (8.4-25.7); Calc. Creatinine Clearance 56 mL/min (70-130); Calcium 7.3 mg/dL (7.8-10.44); Carbon Dioxide 18 mmol/L (23-31); Chloride 113 mmol/L (98-107); Glucose 112 mg/dL (83-110); Potassium 5.3 mmol/L (3.5-5.1); Sodium 141 mmol/L (136-145)
[2020-07-12] MEDS: Atorvastatin Calcium 40 MG TAB PO SCH (21:05)
[2020-07-13] MEDS: Diabetic Tussin 200 MG/10 ML UDCUP PO SCH ×6 (00:01→20:19)
[2020-07-13] MEDS: Sodium Chloride 0.9% 1,000 ML IV SCH ×2 (02:18→15:53)
--- NOTE | 2020-07-13 04:43 | PRG ---
DATE OF SERVICE: 07/12/2020 SUBJECTIVE: David Kelly is a 70-year-old gentleman who was intubated on the vent. OBJECTIVE: VITAL SIGNS: Temperature of 97, respirations 20, blood pressure 115/59, sats 97%. His I's and O's are positive. CHEST: No wheezing. No crackles. CARDIAC: Normal S1, S2. No gallops. ABDOMEN: Soft. LABORATORY DATA: White count is 43.9, H and H of 9 and 27. He has 20 monocytes. PO2 is 92, pCO2 is 29, pH is 7.40 on a PEEP of 12, 40%. His lytes show creatinine is 1.86, BUN 91. IMPRESSION: 1. History of elevated respiratory failure. 2. Long positive status. 3. Marked leukocytosis. 4. Renal failure. PLAN: 1. Vent being adjusted. 2. Continue steroids, empiric antibiotics. 3. Slow weaning as tolerated. One-half hour of critical care time. Job ID: [id number]
[2020-07-13 04:49] LABS: ALT (SGPT) 145 U/L (8-55); AST (SGOT) 284 U/L (5-34); Alkaline Phosphatase 57 U/L (40-110); Anion Gap 12 mmol/L (10-20); BUN (Urea Nitrogen) 94 mg/dL (8.4-25.7); Bilirubin, Total 0.7 mg/dL (0.2-1.2); Calc. Creatinine Clearance 80 mL/min (70-130); Calcium 7.2 mg/dL (7.8-10.44); Carbon Dioxide 22 mmol/L (23-31); Chloride 116 mmol/L (98-107); Globulin 3.2 g/dL (2.4-3.5); Glucose 108 mg/dL (83-110); Potassium 4.8 mmol/L (3.5-5.1); Protein, Total 6.2 g/dL (5.8-8.1); Sodium 145 mmol/L (136-145)
[2020-07-13 05:08] LABS: Band 3 % (5-11); Lymphocytes 5 % (21-51); MDiff Complete? YES; Mean Corpuscular Hemoglobin 31.9 pg (27.0-31.0); Mean Corpuscular Volume 96.4 fL (78.0-98.0); Mean Platelet Volume 8.8 fL (7.4-10.4); Metamyelocyte 3 % (0-0); Monocytes 27 % (0-10); Myelocyte 7 % (0-0); Neutrophil 55 % (42-75); Nucleated RBC 1 % (0); Platelet Count 138 thou/uL (130-400); RBC Distribution Width 13.5 % (11.5-14.5); Red Blood Cell (RBC) Count 2.51 mill/uL (4.70-6.10); White Blood Cell (WBC) Count 27.4 thou/uL (4.8-10.8)
--- NOTE | 2020-07-13 05:27 | PDOC.FM ---
- Subjective Subjective: Patient intubated and sedated. No acute events overnight. - Objective Vital Signs & Weight: Vital Signs (12 hours) Temp Pulse Resp BP Pulse Ox 07/13/20 04:00 14 07/13/20 02:00 16 07/13/20 00:56 65 07/13/20 00:00 26 H 07/12/20 22:00 26 H 07/12/20 21:05 110/52 L 07/12/20 20:00 99.4 F 27 H 95 07/12/20 18:28 73 07/12/20 18:00 30 H Weight Admit Weight 128.5 kg Weight 132.1 kg Most Recent Monitor Data Heart Rate from ECG 62 NIBP 109/48 NIBP BP-Mean 68 Respiration from ECG 17 SpO2 96 I&O: 07/11/20 07/12/20 07/13/20 06:59 06:59 06:59 Intake Total 4000.0 2349 2245 Output Total 2130 270 3060 Balance 1870.0 2079 -815 Result Diagrams: 07/13/20 03:30 07/13/20 03:30 Phys Exam - Physical Examination intubated and sedated HEENT: moist MMs Neck: supple, full ROM coarse breath sounds throughout Cardiovascular: no significant murmur bradycardic Gastrointestinal: soft, non-tender Musculoskeletal: no edema sedated Deviation from normal: sedated Skin: no rash Dx/Plan (1) Acute respiratory failure with hypoxia Code(s): J96.01 - ACUTE RESPIRATORY FAILURE WITH HYPOXIA Status: Acute (2) Pneumonia due to COVID-19 virus Code(s): U07.1 - COVID-19; J12.89 - OTHER VIRAL PNEUMONIA Status: Acute - Plan Plan: Hypoxic Respiratory Failure 2/2 COVID-19 PNA - Patient became fatigued and intubated 07/08, currently on Bi-level, FiO2 40% and satting well -Continue respiratory support with weaning as tolerated - Continue IV decadron, + protonix for GI ppx - s/p convalescent plasma - s/p remdesivir - home eliquis for thrombus PPX - Consulted Dr. Maloney from pulmonology, appreciate recs - Tube feeds started 07/09, running @ 40ml/hr - S/p albumin and increase of fluids to 100ml/hr (switched to NS for azotemia by pulm) -L femoral central line placed 07/10, as patient's pressures were 70s/30s and required levo (stopped 07/12) - Urine output 140-325ml/hr overnight; improved from nights prior - Palliative care consulted - Started cefepime 07/11 due to elevated WBC. See below SUMEET, improved -Cr 1.59 up from baseline of 0.8, however improved from the last several days -urine output improved -Continue NS @ 100ml/hr -will continue to monitor fluid balance closely Normocytic Anemia -hgb 9.0>8.0 -will continue to monitor Leukocytosis, improved - Possibly 2/2 steroid tx. Procal negative. Blood and urine cultures negative. Does not appear to be bacterial respiratory infection based on procal but due to the severity of the patient's illness cefepime started 07/11 Transaminitis -AST/ALT 284/145, doubled from days prior -possible due to hypotension and decreased MAPs -patient has also had remdesivir, but due to sudden increase not likely primary contributor -will continue to monitor HFrEF - daily weights - Patient on NS @ 100ml/hr and kidney function improved; continue to monitor fluid balance - pt denied any home meds other than lisinopril - coreg and atorvastatin started, hold coreg HTN - SBPs have been reduced overnight due to propofol; coreg and lisinopril held - Hydralazine prn Alcohol use - ase scores have been stable - no concerns about withdrawal Afib, obesity - quiescent, continue home meds CODE: FULL PCP: She DVT PPX: home eliquis Diet: Tube feeds Dispo: Admitted to the CCU for respiratory support while intubated, IVF, and tube feeds. Addendum - Attending - Attending Attestation Date/Time: 07/13/20 6422 I personally evaluated the patient and discussed the management with Dr. Morales. I agree with the History, Examination, Assessment and Plan documented above with any addition or exceptions noted below. Patient critical but stable. Renal function improved somewhat, and UOP has increased. ? mild ATN from his previous hypotension and pressor use. Continue vent support per Pulm, wean as tolerated. He has completed all known therapies for COVID and continues on steroids. Prognosis poor.
[2020-07-13 07:53] LABS: ALV-art Gradient 168.125 mmHg (0-20); Base Excess (BEa) -5.6 mEq/L (-2.0 to +3.0); CO2 Tension 32.7 mmHg (35.0-45.0); Calcium, Ionized (arterial) 1.14 mmol/L (1.12-1.30); Carboxyhemoglobin (COHb) 1.3 gm% (0.0-3.0); Hemoglobin (Hb) 6.6 g/dL (14.0-18.0); O2 Tension (PaO2), arterial 76.2 mmHg (> 70.0); Potassium - ABG Lab 4.54 mmol/L (3.70-5.30); Puncture Site RRA; pH, Arterial 7.38 (7.35-7.45)
[2020-07-13] MEDS: Apixaban 5 MG TAB PO SCH ×2 (08:46→20:28)
[2020-07-13] MEDS: Pantoprazole 40 MG VIAL IVP SCH (08:47)
[2020-07-13] MEDS: Dexamethasone Sod Phosphate 6 MG in Sodium Chloride 0.9% 50 ML IVPB SCH (08:54)
[2020-07-13] MEDS: Cefepime 1 GM in Sodium Chloride 0.9% 100 ML IVPB SCH ×2 (09:11→22:02)
--- NOTE | 2020-07-13 09:24 | PRG ---
DATE OF SERVICE: 07/13/2020 SUBJECTIVE: This is a 70-year-old gentleman who remains intubated on the vent. His x-ray looks better, less in infiltrates. He is still sedated. OBJECTIVE: VITAL SIGNS: Temperature is 99, blood pressure 100/40, sats 95%, respiratory rate 20. CHEST: Decreased breath sounds. No wheezing. CARDIAC: Normal S1, S2. No gallops. ABDOMEN: No masses. LABORATORY DATA: White count 27,000, H and H , platelet count is normal. Multiple abnormalities on the CBC. PO2 of 76, pCO2 of on a bilevel rate of 14, low PEEP of 10. His BUN and creatinine are stable. Liver function elevated. IMPRESSION: Respiratory failure, fernandez-positive pneumonia, abnormal CBC, myeloproliferative disorder. Continue Decadron, antibiotics, supportive care. Vent being adjusted. Avoid paralytics if possible. One-half hour of critical time. Job ID: [id number]
[2020-07-13] MEDS: Propofol 1,000 MG/100 ML VIAL IV PRN ×2 (13:02→19:19)
[2020-07-13] MEDS: Atorvastatin Calcium 40 MG TAB PO SCH (20:28)
[2020-07-14] MEDS: Propofol 1,000 MG/100 ML VIAL IV PRN ×4 (00:44→18:42)
[2020-07-14] MEDS: Diabetic Tussin 200 MG/10 ML UDCUP PO SCH ×6 (01:15→21:54)
[2020-07-14] MEDS: Sodium Chloride 0.9% 1,000 ML IV SCH (04:11)
[2020-07-14 04:40] LABS: Anion Gap 12 mmol/L (10-20); BUN (Urea Nitrogen) 71 mg/dL (8.4-25.7); Calc. Creatinine Clearance 121 mL/min (70-130); Carbon Dioxide 22 mmol/L (23-31); Chloride 118 mmol/L (98-107); Potassium 4.6 mmol/L (3.5-5.1); Sodium 147 mmol/L (136-145)
[2020-07-14 04:41] LABS: ALT (SGPT) 146 U/L (8-55); AST (SGOT) 235 U/L (5-34); Albumin 2.8 g/dL (3.4-4.8); Alkaline Phosphatase 52 U/L (40-110); Bilirubin, Total 0.6 mg/dL (0.2-1.2); Calcium 7.4 mg/dL (7.8-10.44); Globulin 3.2 g/dL (2.4-3.5); Glucose 105 mg/dL (83-110)
[2020-07-14 05:35] LABS: Band 7 % (5-11); Eosinophils 1 % (0-10); Hemoglobin 7.8 g/dL (14.0-18.0); Lymphocytes 6 % (21-51); MDiff Complete? YES; Mean Corpuscular HGB CONC 31.4 g/dL (32.0-36.0); Mean Corpuscular Hemoglobin 30.6 pg (27.0-31.0); Mean Corpuscular Volume 97.4 fL (78.0-98.0); Mean Platelet Volume 8.7 fL (7.4-10.4); Metamyelocyte 1 % (0-0); Monocytes 27 % (0-10); Neutrophil 58 % (42-75); Platelet Count 129 thou/uL (130-400); RBC Distribution Width 13.5 % (11.5-14.5); Red Blood Cell (RBC) Count 2.55 mill/uL (4.70-6.10); White Blood Cell (WBC) Count 23.8 thou/uL (4.8-10.8)
--- NOTE | 2020-07-14 05:46 | PDOC.FM ---
- Subjective Subjective: Patient intubated and sedated. No acute events overnight. - Objective Vital Signs & Weight: Vital Signs (12 hours) Temp Pulse Resp BP Pulse Ox 07/14/20 04:00 98.4 F 21 H 07/14/20 02:02 56 L 105/49 L 07/14/20 01:41 21 H 07/14/20 00:08 53 L 103/49 L 07/14/20 00:00 98.7 F 07/13/20 22:21 55 L 105/51 L 07/13/20 20:00 98.6 F 100 07/13/20 19:59 22 H 07/13/20 18:46 60 105/50 L 07/13/20 18:00 20 Weight Admit Weight 128.5 kg Weight 137 g Most Recent Monitor Data Heart Rate from ECG 59 NIBP 116/59 NIBP BP-Mean 78 Respiration from ECG 21 SpO2 95 I&O: 07/12/20 07/13/20 07/14/20 06:59 06:59 06:59 Intake Total 2349 3994 2343 Output Total 270 3460 3450 Balance 2079 534 1107 Result Diagrams: 07/14/20 03:30 07/14/20 03:30 Phys Exam - Physical Examination Constitutional: NAD HEENT: moist MMs Neck: supple Respiratory: no wheezing mildly coarse breath sounds throughout Cardiovascular: RRR, no significant murmur Gastrointestinal: soft, no distention bilateral arm/hand edema Psychiatric: normal affect Skin: no rash Dx/Plan (1) Acute respiratory failure with hypoxia Code(s): J96.01 - ACUTE RESPIRATORY FAILURE WITH HYPOXIA Status: Acute (2) Pneumonia due to COVID-19 virus Code(s): U07.1 - COVID-19; J12.89 - OTHER VIRAL PNEUMONIA Status: Acute - Plan Plan: Hypoxic Respiratory Failure 2/2 COVID-19 PNA - Patient became fatigued and intubated 07/08, currently on Bi-level, FiO2 40% and satting well -Continue respiratory support with weaning as tolerated - Continue IV decadron, + protonix for GI ppx - s/p convalescent plasma - s/p remdesivir - home eliquis for thrombus PPX - Consulted Dr. Maloney from pulmonology, appreciate recs - Tube feeds started 07/09, running @ 40ml/hr - S/p albumin and increase of fluids to 100ml/hr (switched to NS for azotemia by pulm) -L femoral central line placed 07/10, as patient's pressures were 70s/30s and required levo (stopped 07/12) - Urine output >120ml/hr overnight; improved from nights prior - Palliative care consulted - Started cefepime 07/11 due to elevated WBC. See below SUMEET, improved -Cr 1.05 up from baseline of 0.8, however improved from the last several days -urine output improved; per nursing mccann was flushed and this allowed for greater urine output -Decreased NS to 50ml/hr to assist with hyperchloremia and hypernatremia -will continue to monitor fluid balance closely Hypernatremia and Hyperchloremia -sodium 147, chloride 118; likely due to NS -Decreasing NS rate today Normocytic Anemia -hgb 9.0>8.0>7.8 -will continue to monitor Leukocytosis, improved - Possibly 2/2 steroid tx. Procal negative. Blood and urine cultures negative. Does not appear to be bacterial respiratory infection based on procal but due to the severity of the patient's illness cefepime started 07/11 Transaminitis -AST/ALT 284/145, doubled from days prior -possible due to hypotension and decreased MAPs -patient has also had remdesivir, but due to sudden increase not likely primary contributor -will continue to monitor HFrEF - daily weights - Patient on NS @ 100ml/hr and kidney function improved; continue to monitor fluid balance and decrease rate today - pt denied any home meds other than lisinopril - coreg and atorvastatin started, hold coreg HTN - SBPs have been reduced overnight due to propofol; coreg and lisinopril held - Hydralazine prn Alcohol use - ase scores have been stable - no concerns about withdrawal Afib, obesity - quiescent, continue home meds CODE: FULL PCP: She DVT PPX: home eliquis Diet: Tube feeds Dispo: Admitted to the CCU for respiratory support while intubated, IVF, and tube feeds. Addendum - Attending - Attending Attestation Date/Time: 07/14/20 5598 I personally evaluated the patient and discussed the management with Dr. Morales I agree with the History, Examination, Assessment and Plan documented above with any addition or exceptions noted below. 70 yo male admitted to acute respiratory failure 2/2 COVID PNA. Patient slow to improved. D-dimer still significantly elevated. Continue anticoag. A-a gradient improving. Pulm following. LFTs stable. Continue close monitoring. WBC down trending. Likely related to demargination from pressors and steroid use as well as inflammatory response. Peripheral smear pending. PLT continue to down trend as well. Monitoring with labs. No bleeding. SUMEET improved and related to obstructive uropathy from Mccann blockage. Improved. Remove cmcann CINTIA. Elevated free H2O deficit. KVO IVF. Increase free water flush per OG. Trend NaCl. Pos fluid balance. Monitor for 3rd spacing and overload. Tristan
[2020-07-14] MEDS: Pantoprazole 40 MG VIAL IVP SCH (07:33)
[2020-07-14] MEDS: Apixaban 5 MG TAB PO SCH ×2 (07:34→21:54)
[2020-07-14] MEDS ORDERED: Sodium Chloride 0.9% 1,000 ML IV SCH (08:40)
[2020-07-14 09:15] LABS: Actual Bicarbonate (HCO3a) 18.7 mEq/L (22-28); Base Excess (BEa) -5.7 mEq/L (-2.0 to +3.0); CO2 Tension 32.2 mmHg (35.0-45.0); Calcium, Ionized (arterial) 1.16 mmol/L (1.12-1.30); Carboxyhemoglobin (COHb) 0.6 gm% (0.0-3.0); Hemoglobin (Hb) 9.3 g/dL (14.0-18.0); Potassium - ABG Lab 4.49 mmol/L (3.70-5.30); pH, Arterial 7.38 (7.35-7.45)
[2020-07-14 09:19] LABS: O2 Tension (PaO2), arterial 58.8 mmHg (> 70.0); Puncture Site RRA
[2020-07-14] MEDS: Dexamethasone Sod Phosphate 6 MG in Sodium Chloride 0.9% 50 ML IVPB SCH (09:30)
[2020-07-14] MEDS: Cefepime 1 GM in Sodium Chloride 0.9% 100 ML IVPB SCH ×2 (10:04→21:54)
[2020-07-14 16:06] LABS: Anion Gap 12 mmol/L (10-20); BUN (Urea Nitrogen) 65 mg/dL (8.4-25.7); Calc. Creatinine Clearance 0 mL/min (70-130); Calcium 7.6 mg/dL (7.8-10.44); Carbon Dioxide 21 mmol/L (23-31); Chloride 117 mmol/L (98-107); Glucose 124 mg/dL (83-110); Sodium 145 mmol/L (136-145)
--- NOTE | 2020-07-14 19:15 | PRG ---
DATE OF SERVICE: 07/14/2020 SUBJECTIVE: Leticia remains mechanically ventilated. OBJECTIVE: VITAL SIGNS: Respiratory rates in the 20s, FiO2 is down to 40%, blood pressure 115/60, heart rate is 58. Intake and outputs, positive 831 mL. IMAGING STUDIES: Chest x-ray couple of days, but was unchanged. Lungs, heart, and abdomen are unchanged. LABORATORY DATA: White count 23.8, hemoglobin 7.8, platelets 129,000. I suspect he will need a transfusion before long. Sodium 145, potassium 5, chloride 117, bicarb 21, BUN 65, creatinine 0.97. Creatinine was 2.26 on the 2nd. IMPRESSION: 1. COVID pneumonia. 2. Respiratory failure. 3. Elevated liver enzymes, improving. 4. Acute on chronic kidney disease, improving. Surprisingly, overall, he seems to be getting better, but is not to the point where he can be extubated. Check a chest x-ray in the morning. Critical care time, 30 minutes. Job ID: [id number]
[2020-07-15] MEDS: Diabetic Tussin 200 MG/10 ML UDCUP PO SCH ×6 (00:52→21:40)
[2020-07-15] MEDS: Propofol 1,000 MG/100 ML VIAL IV PRN ×3 (02:17→21:56)
[2020-07-15] MEDS: Sodium Chloride 0.9% 1,000 ML IV SCH (03:18)
[2020-07-15 05:57] LABS: Hemoglobin 8.2 g/dL (14.0-18.0); Mean Corpuscular HGB CONC 31.5 g/dL (32.0-36.0); Mean Corpuscular Hemoglobin 30.5 pg (27.0-31.0); Mean Corpuscular Volume 96.9 fL (78.0-98.0); Mean Platelet Volume 9.1 fL (7.4-10.4); Platelet Count 121 thou/uL (130-400); RBC Distribution Width 13.6 % (11.5-14.5); Red Blood Cell (RBC) Count 2.69 mill/uL (4.70-6.10); White Blood Cell (WBC) Count 26.1 thou/uL (4.8-10.8)
[2020-07-15 05:58] LABS: ALT (SGPT) 193 U/L (8-55); AST (SGOT) 297 U/L (5-34); Albumin 2.7 g/dL (3.4-4.8); Alkaline Phosphatase 61 U/L (40-110); Anion Gap 12 mmol/L (10-20); BUN (Urea Nitrogen) 58 mg/dL (8.4-25.7); Bilirubin, Total 0.8 mg/dL (0.2-1.2); Calc. Creatinine Clearance 0 mL/min (70-130); Calcium 7.6 mg/dL (7.8-10.44); Carbon Dioxide 23 mmol/L (23-31); Chloride 115 mmol/L (98-107); Globulin 3.6 g/dL (2.4-3.5); Glucose 95 mg/dL (83-110); Potassium 4.7 mmol/L (3.5-5.1); Protein, Total 6.3 g/dL (5.8-8.1); Sodium 145 mmol/L (136-145)
[2020-07-15 06:07] LABS: Band 5 % (5-11); Lymphocytes 5 % (21-51); MDiff Complete? YES; Monocytes 30 % (0-10); Myelocyte 5 % (0-0); Neutrophil 55 % (42-75)
--- NOTE | 2020-07-15 06:10 | PDOC.FM ---
- Subjective Subjective: Patient is intubated and sedated. - Objective Vital Signs & Weight: Vital Signs (12 hours) Temp Pulse Resp BP Pulse Ox 07/15/20 06:00 24 H 07/15/20 04:00 98.0 F 23 H 07/15/20 02:29 58 L 102/54 L 07/15/20 02:00 22 H 07/15/20 00:00 98.0 F 20 07/14/20 22:10 63 130/66 07/14/20 22:00 22 H 07/14/20 20:00 98.3 F 22 H 07/14/20 19:45 96 07/14/20 18:57 57 L 115/60 Weight Admit Weight 128.5 kg Weight 137 g Most Recent Monitor Data Heart Rate from ECG 55 NIBP 86/43 NIBP BP-Mean 57 Respiration from ECG 22 SpO2 94 I&O: 07/13/20 07/14/20 07/15/20 06:59 06:59 06:59 Intake Total 3994 4386 2857 Output Total 3460 3555 2745 Balance 534 831 112 Result Diagrams: 07/15/20 05:05 07/15/20 05:05 Phys Exam - Physical Examination intubated and sedated HEENT: moist MMs Neck: supple, full ROM coarse breath sounds throughout Cardiovascular: RRR, no significant murmur Gastrointestinal: soft, non-tender BUE swelling Deviation from normal: sedated Skin: no rash Dx/Plan (1) Acute respiratory failure with hypoxia Code(s): J96.01 - ACUTE RESPIRATORY FAILURE WITH HYPOXIA Status: Acute (2) Pneumonia due to COVID-19 virus Code(s): U07.1 - COVID-19; J12.89 - OTHER VIRAL PNEUMONIA Status: Acute - Plan Plan: Hypoxic Respiratory Failure 2/2 COVID-19 PNA - Patient became fatigued and intubated 07/08, currently on Bi-level, required increase to FiO2 50% overnight -Continue respiratory support with weaning as tolerated - Continue IV decadron, + protonix for GI ppx - s/p convalescent plasma - s/p remdesivir - home eliquis for thrombus PPX - Consulted Dr. Maloney from pulmonology, appreciate recs - Tube feeds started 07/09, running @ 40ml/hr - S/p albumin and increase of fluids to 100ml/hr (switched to NS for azotemia by pulm) -L femoral central line placed 07/10, as patient's pressures were 70s/30s and required levo (stopped 07/12) - Urine output >90ml/hr overnight; improved from nights prior - Palliative care consulted - Started cefepime 07/11 due to elevated WBC. See below - Will add 20mg IV lasix x 1 to see if this can improve respiratory function SUMEET, resolved -Cr 0.89, at baseline -urine output improved; per nursing mccann was flushed and this allowed for greater urine output -suspect component of ATN as cause of worsening renal function that has since improved -will continue to monitor fluid balance closely Hypernatremia and Hyperchloremia -sodium 147>145, chloride 118>115; likely due to NS -NS switched to KVO 07/14, increased free water flushes to 250ml QID Normocytic Anemia -hgb 9.0>8.2 -will continue to monitor Leukocytosis, improved - Possibly 2/2 steroid tx. Procal negative. Blood and urine cultures negative. Does not appear to be bacterial respiratory infection based on procal but due to the severity of the patient's illness cefepime started 07/11 Transaminitis -AST/ALT 297/193, doubled from days prior -possibly due to hypotension and decreased MAPs -patient has also had remdesivir, but due to sudden increase not likely primary contributor -will continue to monitor -statin d/c'd for the time being HFrEF - daily weights - fluids KVO 07/14 - pt denied any home meds other than lisinopril - coreg and atorvastatin started, hold coreg and lisinopril for pressures HTN - SBPs have been reduced overnight due to propofol; coreg and lisinopril held - Hydralazine prn Alcohol use - ase scores have been stable - no concerns about withdrawal Afib, obesity - quiescent, continue home meds CODE: FULL PCP: She DVT PPX: home eliquis Diet: Tube feeds Dispo: Admitted to the CCU for respiratory support while intubated, IVF, and tube feeds. Addendum - Attending - Attending Attestation Date/Time: 07/15/20 3137 I personally evaluated the patient and discussed the management with Dr. Morales. I agree with the History, Examination, Assessment and Plan documented above with any addition or exceptions noted below. Patient overall stable. Continues critically ill on ventilator. Wean as tolerat ed. Urine output continues to do well and renal function improving, suspect ATN as cause for azotemia and diminished UOP. Off Levophed. WBC downtrending, continues on empiric abx. In need of family update with continued poor to guarded prognosis.
--- NOTE | 2020-07-15 08:26 | RAD ---
PORTABLE CHEST: Date: 07/15/2020 HISTORY: Pneumonia. CCU follow-up on ventilator. COMPARISON: 07/12/2020. FINDINGS: ET tube and NG tube remain in place. There are bilateral patchy air space infiltrates more prominent in both lower lungs. Infiltrates appe ar more prominent on the current study. IMPRESSION: Evidence of worsening infiltrates when compared to 07/12/2020. POS: AGW
[2020-07-15 09:17] LABS: Actual Bicarbonate (HCO3a) 19.9 mEq/L (22-28); Base Excess (BEa) -4.7 mEq/L (-2.0 to +3.0); CO2 Tension 35.3 mmHg (35.0-45.0); Calcium, Ionized (arterial) 1.15 mmol/L (1.12-1.30); Carboxyhemoglobin (COHb) 0.7 gm% (0.0-3.0); Hemoglobin (Hb) 10.4 g/dL (14.0-18.0); Potassium - ABG Lab 4.96 mmol/L (3.70-5.30); pH, Arterial 7.37 (7.35-7.45)
[2020-07-15 09:30] LABS: ALV-art Gradient 258.775 mmHg (0-20); O2 Tension (PaO2), arterial 53.6 mmHg (> 70.0); Puncture Site RRA
[2020-07-15] MEDS: Pantoprazole 40 MG GRANULES PACKET PER TUBE SCH (10:27)
[2020-07-15] MEDS: Cefepime 1 GM in Sodium Chloride 0.9% 100 ML IVPB SCH ×2 (10:27→21:40)
[2020-07-15] MEDS: Apixaban 5 MG TAB PO SCH ×2 (10:27→21:40)
[2020-07-15] MEDS: Dexamethasone Sod Phosphate 6 MG in Sodium Chloride 0.9% 50 ML IVPB SCH (10:28)
[2020-07-15] MEDS ORDERED: Norepinephrine 8 MG in Dextrose 5% in Water 242 ML IVPB PRN (10:45)
[2020-07-15] MEDS ORDERED: Furosemide 20 MG/2 ML VIAL SLOW IVP SCH (12:45)
--- NOTE | 2020-07-15 15:18 | PRG ---
DATE OF SERVICE: 07/15/2020 SUBJECTIVE: Mr. Kelly remains stable. OBJECTIVE: VITAL SIGNS: Heart rate is in the 60s, blood pressure 151/69, respiratory rates in the 20s. LUNGS: Remarkable for coarse equal breath sounds. HEART: Regular rhythm. ABDOMEN: Soft. LABORATORY DATA: White count 26, hemoglobin 8.2, platelets 121. Sodium 145, potassium 4.7, chloride 115, bicarb 23, BUN 58, creatinine 0.89. PH 7.37, CO2 of 35, PO2 of 53. IMPRESSION: COVID pneumonia, clinically stable. His chest radiograph is unchanged to perhaps slightly worse. His gas exchange is relatively stable. He received a dose of Lasix today. Hopefully, we can keep him in negative fluid balance. Critical care time 30 min Job ID: [id number] MTDD
[2020-07-16] MEDS: Diabetic Tussin 200 MG/10 ML UDCUP PO SCH ×6 (01:36→20:05)
[2020-07-16] MEDS: Propofol 1,000 MG/100 ML VIAL IV PRN ×2 (03:35→20:45)
[2020-07-16] MEDS: Lorazepam 2 MG/ML VIAL SLOW IVP PRN (03:36)
[2020-07-16 04:40] LABS: White Blood Cell (WBC) Count 42.5 thou/uL (4.8-10.8)
[2020-07-16 04:50] LABS: ALT (SGPT) 196 U/L (8-55); AST (SGOT) 262 U/L (5-34); Albumin 3.1 g/dL (3.4-4.8); Alkaline Phosphatase 72 U/L (40-110); Anion Gap 16 mmol/L (10-20); BUN (Urea Nitrogen) 54 mg/dL (8.4-25.7); Bilirubin, Total 1.4 mg/dL (0.2-1.2); Calc. Creatinine Clearance 128 mL/min (70-130); Calcium 8.2 mg/dL (7.8-10.44); Carbon Dioxide 21 mmol/L (23-31); Chloride 111 mmol/L (98-107); Globulin 4.2 g/dL (2.4-3.5); Glucose 94 mg/dL (83-110); Potassium 5.3 mmol/L (3.5-5.1); Protein, Total 7.3 g/dL (5.8-8.1); Sodium 143 mmol/L (136-145)
[2020-07-16 05:11] LABS: Hemoglobin 9.5 g/dL (14.0-18.0); MDiff Complete? YES; Mean Corpuscular HGB CONC 32.6 g/dL (32.0-36.0); Mean Corpuscular Hemoglobin 31.2 pg (27.0-31.0); Mean Corpuscular Volume 95.6 fL (78.0-98.0); Mean Platelet Volume 8.9 fL (7.4-10.4); Platelet Count 131 thou/uL (130-400); RBC Distribution Width 13.4 % (11.5-14.5); Red Blood Cell (RBC) Count 3.05 mill/uL (4.70-6.10)
[2020-07-16 05:12] LABS: Band 5 % (5-11); Lymphocytes 11 % (21-51); Monocytes 28 % (0-10); Myelocyte 2 % (0-0); Neutrophil 54 % (42-75)
--- NOTE | 2020-07-16 05:41 | PDOC.FM ---
- Objective Vital Signs & Weight: Vital Signs (12 hours) Temp Pulse Resp BP Pulse Ox 07/16/20 04:00 32 H 07/16/20 02:34 96 148/78 H 07/16/20 02:00 32 H 07/16/20 00:17 74 153/73 H 07/16/20 00:00 34 H 07/15/20 22:20 73 131/62 07/15/20 22:00 30 H 07/15/20 20:00 24 H 97 07/15/20 19:14 69 114/60 07/15/20 19:00 98.8 F 07/15/20 18:00 23 H Weight Admit Weight 128.5 kg Weight 134.4 kg Most Recent Monitor Data Heart Rate from ECG 101 NIBP 119/72 NIBP BP-Mean 87 Respiration from ECG 32 SpO2 97 I&O: 07/14/20 07/15/20 07/16/20 06:59 06:59 06:59 Intake Total 4386 2857 1268 Output Total 9951 2895 2480 Balance 255 -18 -2463 Result Diagrams: 07/16/20 03:37 07/16/20 03:37 Dx/Plan (1) Acute respiratory failure with hypoxia Code(s): J96.01 - ACUTE RESPIRATORY FAILURE WITH HYPOXIA Status: Acute (2) Pneumonia due to COVID-19 virus Code(s): U07.1 - COVID-19; J12.89 - OTHER VIRAL PNEUMONIA Status: Acute - Plan Plan: Hypoxic Respiratory Failure 2/2 COVID-19 PNA - Patient became fatigued and intubated 07/08, currently on Bi-level, required increase to FiO2 50% overnight -Continue respiratory support with weaning as tolerated - Continue IV decadron, + protonix for GI ppx - s/p convalescent plasma - s/p remdesivir - home eliquis for thrombus PPX - Consulted Dr. Maloney from pulmonology, appreciate recs - Tube feeds started 07/09, running @ 40ml/hr - S/p albumin and increase of fluids to 100ml/hr (switched to NS for azotemia by pulm) -L femoral central line placed 07/10, as patient's pressures were 70s/30s and required levo (stopped 07/12) - Urine output >90ml/hr overnight; improved from nights prior - Palliative care consulted - Started cefepime 07/11 due to elevated WBC. See below - 20mg IV lasix x 1 added 07/15 for possible diuresis to improve respiratory funct ion SUMEET, resolved -Cr 0.89, at baseline > 1.01 s/p 20mg lasix yesterday -urine output improved; per nursing mccann was flushed and this allowed for greater urine output -suspect component of ATN as cause of worsening renal function that has since improved -will continue to monitor fluid balance closely Hypernatremia and Hyperchloremia -sodium 147>145>143, chloride 118>115>111; likely due to NS -NS switched to KVO 07/14, increased free water flushes to 250ml QID Normocytic Anemia -hgb 9.0>9.5 -will continue to monitor Leukocytosis, improved - Possibly 2/2 steroid tx. Procal negative. Blood and urine cultures negative. Does not appear to be bacterial respiratory infection based on procal but due to the severity of the patient's illness cefepime started 07/11 Transaminitis -AST/ALT 262/196, doubled from days prior -possibly due to hypotension and decreased MAPs -patient has also had remdesivir, but due to sudden increase not likely primary contributor -will continue to monitor -statin d/c'd for the time being HFrEF - daily weights - fluids KVO 07/14 - pt denied any home meds other than lisinopril - coreg and atorvastatin started, hold coreg and lisinopril for pressures HTN - SBPs have been reduced overnight due to propofol; coreg and lisinopril held - Hydralazine prn Alcohol use - ase scores have been stable - no concerns about withdrawal Afib, obesity - quiescent, continue home meds CODE: FULL PCP: She DVT PPX: home eliquis Diet: Tube feeds Dispo: Admitted to the CCU for respiratory support while intubated, IVF, and tube feeds.
--- NOTE | 2020-07-16 07:36 | PDOC.FM ---
- Subjective Subjective: Patient is intubated and sedated. He desatted a little earlier this morning, fio2 was increased. Morning ABG pending. RR in the 30s over the vent, nursing to start fentanyl. Diuresed well yesterday - Objective Vital Signs & Weight: Vital Signs (12 hours) Pulse Resp BP Pulse Ox 07/16/20 06:00 33 H 07/16/20 04:00 32 H 07/16/20 02:34 96 148/78 H 07/16/20 02:00 32 H 07/16/20 00:17 74 153/73 H 07/16/20 00:00 34 H 07/15/20 22:20 73 131/62 07/15/20 22:00 30 H 07/15/20 20:00 24 H 97 Weight Admit Weight 128.5 kg Weight 133.4 kg Most Recent Monitor Data Heart Rate from ECG 94 NIBP 148/75 NIBP BP-Mean 99 Respiration from ECG 35 SpO2 91 I&O: 07/15/20 07/16/20 07/17/20 06:59 06:59 06:59 Intake Total 2857 1546 Output Total 2895 3880 Balance -38 -4934 Result Diagrams: 07/16/20 03:37 07/16/20 03:37 Phys Exam - Physical Examination inutbated, sedated, no response to stimuli HEENT: moist MMs Respiratory: no wheezing, no rhonchi (anteriorly) Cardiovascular: RRR, no significant murmur Gastrointestinal: soft, no distention, positive bowel sounds BUE edema, no LE edema Skin: normal turgor, cap refill <2 seconds Dx/Plan - Plan Plan: Hypoxic Respiratory Failure 2/2 COVID-19 PNA - Patient became fatigued and intubated 07/08, currently on Bi-level, required increase to FiO2 50% overnight - Continue IV decadron, + protonix for GI ppx - s/p convalescent plasma - s/p remdesivir - home eliquis for thrombus PPX - Consulted Dr. Maloney from pulmonology, appreciate recs - Tube feeds started 07/09, running @ 40ml/hr - S/p albumin, IVF. Now transitioned to free water flushes only -L femoral central line placed 07/10, required levo (stopped 07/12) - Urine output >90ml/hr overnight; improved from nights prior - Palliative care consulted - Continue cefepime 07/11 - Will add 20mg IV lasix x 1 to see if this can improve respiratory function SUMEET, resolved -urine output improved; per nursing mccann was flushed and this allowed for greater urine output -suspect component of ATN as cause of worsening renal function that has since improved -will continue to monitor fluid balance closely, Cr did have slight increase this am Hypernatremia and Hyperchloremia, improving -sodium 147>145, chloride 118>115; likely due to NS -NS switched to KVO 07/14, increased free water flushes to 250ml QID Normocytic Anemia -hgb 9.0>8.2 -will continue to monitor Leukocytosis, improved - Possibly 2/2 steroid tx. Procal negative. Blood and urine cultures negative. Does not appear to be bacterial respiratory infection based on procal but due to the severity of the patient's illness cefepime started 07/11 Transaminitis -AST/ALT 297/193, doubled from days prior -possibly due to hypotension and decreased MAPs -patient has also had remdesivir, but due to sudden increase not likely primary contributor -statin d/c'd for the time being HFrEF - daily weights - fluids KVO 07/14 - pt denied any home meds other than lisinopril - coreg and atorvastatin started, hold coreg and lisinopril for pressures - diuresed well yesterday, one more lasix dose today HTN - SBPs have been reduced overnight due to propofol; coreg and lisinopril held - Hydralazine prn Alcohol use - ase scores have been stable - no concerns about withdrawal Afib, obesity - quiescent, continue home meds CODE: FULL PCP: She DVT PPX: home eliquis Diet: Tube feeds Dispo: Admitted to the CCU for respiratory support while intubated, IVF, and tube feeds. Addendum - Attending - Attending Attestation Date/Time: 07/16/20 1610 I personally evaluated the patient and discussed the management with Dr. Major. I agree with the History, Examination, Assessment and Plan documented above with any addition or exceptions noted below. Patient continues to be critically ill. Resp status overall stable, will attempt Lasix again today as he diuresed well yesterday but still appears to have some congestion and hepatic congestion. Labs overall stable, WBC has spiked back up but no major evidence of bacterial infection and afebrile. Continue vent mgmt per Pulm. Continue to closely monitor UOP though has been good over the last couple of days.
[2020-07-16] MEDS: fentaNYL Citrate/PF 2,000 MCG in Sodium Chloride 0.9% 60 ML IV SCH (08:12)
[2020-07-16] MEDS ORDERED: Furosemide 20 MG/2 ML VIAL SLOW IVP SCH (08:30)
[2020-07-16 08:36] LABS: Actual Bicarbonate (HCO3a) 21.7 mEq/L (22-28); Base Excess (BEa) -3.5 mEq/L (-2.0 to +3.0); CO2 Tension 39.3 mmHg (35.0-45.0); Calcium, Ionized (arterial) 1.16 mmol/L (1.12-1.30); Hemoglobin (Hb) 8.6 g/dL (14.0-18.0); O2 Tension (PaO2), arterial 68.8 mmHg (> 70.0); pH, Arterial 7.36 (7.35-7.45)
[2020-07-16] MEDS: Apixaban 5 MG TAB PO SCH ×2 (09:15→20:05)
[2020-07-16] MEDS: Pantoprazole 40 MG GRANULES PACKET PER TUBE SCH (09:15)
[2020-07-16 09:37] LABS: ALV-art Gradient 309.875 mmHg (0-20); Puncture Site RRA
[2020-07-16] MEDS: Dexamethasone Sod Phosphate 6 MG in Sodium Chloride 0.9% 50 ML IVPB SCH (10:33)
[2020-07-16] MEDS: Cefepime 1 GM in Sodium Chloride 0.9% 100 ML IVPB SCH ×2 (10:35→22:17)
--- NOTE | 2020-07-16 21:16 | PRG ---
DATE OF SERVICE: 07/16/2020 SUBJECTIVE: Leticia remains mechanically ventilated. His hemodynamics remained stable. OBJECTIVE: VITAL SIGNS: Heart rate is in 70s, blood pressure 101/61, respiratory rate 22, FiO2 is 60%. Intake and outputs -2334. LUNGS: Unchanged. HEART: Unchanged. ABDOMEN: Unchanged. LABORATORY DATA: White count 42.5, hemoglobin 9.5, platelets 131. Sodium 143, potassium 5.3, chloride 111, bicarb 21, BUN 54, creatinine 1.01. IMPRESSION: COVID pneumonia, respiratory failure. His bump in white count is a concern, but for now we will just observe this. He is already on broad antimicrobial coverage. PH 7.36, CO2 of 39 and PO2 68. Fortunately, we have been able to keep his FiO2 relatively low compared to a lot of COVID patients hopefully this continues. Continue Critical Care. Critical care time 30 min Job ID: [id number] MTDD
[2020-07-17] MEDS: Vecuronium 10 MG VIAL IV PRN (00:35)
[2020-07-17 05:38] LABS: ALT (SGPT) 156 U/L (8-55); AST (SGOT) 200 U/L (5-34); Albumin 2.8 g/dL (3.4-4.8); Alkaline Phosphatase 70 U/L (40-110); Anion Gap 14 mmol/L (10-20); BUN (Urea Nitrogen) 70 mg/dL (8.4-25.7); Bilirubin, Total 1.2 mg/dL (0.2-1.2); Calc. Creatinine Clearance 109 mL/min (70-130); Calcium 8.1 mg/dL (7.8-10.44); Carbon Dioxide 24 mmol/L (23-31); Chloride 111 mmol/L (98-107); Glucose 108 mg/dL (83-110); Potassium 6.3 mmol/L (3.5-5.1); Protein, Total 6.8 g/dL (5.8-8.1); Sodium 143 mmol/L (136-145)
[2020-07-17 05:39] LABS: White Blood Cell (WBC) Count 53.1 thou/uL (4.8-10.8)
[2020-07-17 06:09] LABS: Band 8 % (5-11); Hemoglobin 7.9 g/dL (14.0-18.0); Lymphocytes 3 % (21-51); MDiff Complete? YES; Mean Corpuscular HGB CONC 31.5 g/dL (32.0-36.0); Mean Corpuscular Hemoglobin 30.5 pg (27.0-31.0); Mean Corpuscular Volume 96.9 fL (78.0-98.0); Mean Platelet Volume 9.1 fL (7.4-10.4); Metamyelocyte 1 % (0-0); Monocytes 13 % (0-10); Neutrophil 75 % (42-75); Platelet Count 111 thou/uL (130-400); Platelet Morphology Comment Appears Decreased; RBC Distribution Width 13.6 % (11.5-14.5); Red Blood Cell (RBC) Count 2.57 mill/uL (4.70-6.10)
[2020-07-17] MEDS: Diabetic Tussin 200 MG/10 ML UDCUP PO SCH ×6 (06:35→20:49)
--- NOTE | 2020-07-17 07:22 | PDOC.FM ---
- Subjective Subjective: Patient was sedated and intubated. No acute overnight events reported by Resident Night Team or Nursing Staff. - Objective Vital Signs & Weight: Vital Signs (12 hours) Pulse Resp BP Pulse Ox 07/17/20 07:11 71 96/61 07/17/20 06:00 33 H 07/17/20 04:00 28 H 07/17/20 02:23 73 120/66 07/17/20 02:00 25 H 07/17/20 00:00 24 H 07/16/20 22:41 66 104/59 L 07/16/20 22:00 24 H 07/16/20 20:00 20 100 Weight Admit Weight 128.5 kg Weight 129.6 kg Most Recent Monitor Data Heart Rate from ECG 66 NIBP 99/55 NIBP BP-Mean 69 Respiration from ECG 21 SpO2 100 I&O: 07/16/20 07/17/20 07/18/20 06:59 06:59 06:59 Intake Total 1546 2213.6 Output Total 3880 2820 Balance -2334 -606.4 Result Diagrams: 07/17/20 04:00 07/17/20 04:00 Phys Exam - Physical Examination Constitutional: NAD HEENT: moist MMs Course Breath Sounds Cardiovascular: RRR, no significant murmur, no rub Gastrointestinal: soft, non-tender, no distention, positive bowel sounds Musculoskeletal: pulses present +2 Radial Sedated and Intubated Deviation from normal: Sedated and Intubated Skin: normal turgor Dx/Plan (1) Acute respiratory failure with hypoxia Code(s): J96.01 - ACUTE RESPIRATORY FAILURE WITH HYPOXIA Status: Acute (2) Pneumonia due to COVID-19 virus Code(s): U07.1 - COVID-19; J12.89 - OTHER VIRAL PNEUMONIA Status: Acute (3) Atrial fibrillation Code(s): I48.91 - UNSPECIFIED ATRIAL FIBRILLATION Status: Acute - Plan Plan: Patient is a 70 y/o male with a PMH significant for A-Fib, HFrEF and HTN who presented to the hospital for worsening respiratory symptoms following COVID-19 diagnosis. #Hypoxic Respiratory Failure 2/2 COVID-19 PNA - Patient became fatigued and intubated 07/08, currently on Bi-level, required increase to FiO2 60% overnight - s/p Convalescent Plasma, Remdesivir - Will continue patients home Eliquis for VTE PPX - Will continue IV Dexamethasone, IV Protonix - Dr. Maloney (Pul): Consulted, recs appreciated - Tube feeds started on 07/09 - s/p Albumin, IVF - now transitioned to free H2O flushes only -Femoral Central Line (L) placed 07/10, initially required Levophed for pressure support - dcd on 07/12 - Urine output ~50 ml/hr overnight - will continue to monitor and consider increasing fluids - Palliative Care: Consulted, recs appreciated - Will continue Cefepime (07/11) #Hyperkalemia -K: 6.3 on 07/17 -Will order repeat BMP #SUMEET, resolved - Urine output improved; per Nursing Staff Garza was flushed and allowed for greater output - Suspect component of ATN as cause of worsening renal function that has since improved - Will continue to monitor Cr and fluid balance closely #Hypernatremia and Hyperchloremia, improving - Na: 147 > 145 > 143 - Cl: 118 > 115 > 111 - Likely due to NS switched to KVO , increased free H2O flushes to 250 ml QID #Normocytic Anemia - Hgb: 9.0 > 8.2 > 7.9 - No obvious signs of bleeding - will continue to monitor #Leukocytosis - Possibly 2/2 ongoing steroid use - Procal: 0.35 - Ucx: Negative - BCx: Negative - No evidence of bacterial respiratory infection but will continue Cefepime due to illness severity #Transaminitis - AST/ALT: 297/193 on 07/15 - downtrended to 200/156 on 07/17 - Possibly due to hypotension, decreased MAPs - Remdesivir may be contributing factor, although unlikely based on sharp increase - Statin dcd for the time being HFrEF - Echo (12/2018): EF (35-40%) - Fluids KVO 07/14 - Patient initially denied home meds other than Lisinopril started on Coreg and Atorvastatin but both currently held due to Transaminitis and need for pressure support - Daily Weights - Strict I&Os #HTN - Pressures have been lower end of normal overnight - not currently requiring BP support - Hydralazine PRN #Suspected EtOH Abuse - ASE Scores have been stable - No concerns for EtOH Withdrawal at this time #A-Fib - Continuous cardiac monitoring - Will continue home meds PCP: She Code: Full Diet: Tube Feeds Activity: Bedrest VTE PPx: Home Eliquis IVF: KVO Dispo: Patient is currently admitted to the CCU for ongoing management of Acute Hypoxic Respiratory Failure due to COVID-19 Pneumonia. Patient is s/p Remdesivir and Convalescent Plasma, will continue steroids and ABx as per above. Pulmonology consulted for respiratory support recs appreciated. Patients overall prognosis remains poor. Expected LOS > 48H. Addendum - Attending - Attending Attestation Date/Time: 07/17/20 5537 I personally evaluated the patient and discussed the management with Dr. Segovia. I agree with the History, Examination, Assessment and Plan documented above with any addition or exceptions noted below. Patient overall stable. Continues to have WBC elevation, consider MPD as no evidence of infection at this time, outside of his COVID status. Continues on vent, wean as tolerated. Renal function stable, continues to diurese. Free water deficit corrected and volume status ok currently.
[2020-07-17 07:54] LABS: Actual Bicarbonate (HCO3a) 22.2 mEq/L (22-28); Base Excess (BEa) -3.8 mEq/L (-2.0 to +3.0); CO2 Tension 45.4 mmHg (35.0-45.0); Calcium, Ionized (arterial) 1.18 mmol/L (1.12-1.30); Carboxyhemoglobin (COHb) 0.6 gm% (0.0-3.0); Hemoglobin (Hb) 8.1 g/dL (14.0-18.0); O2 Tension (PaO2), arterial 79.4 mmHg (> 70.0); Potassium - ABG Lab 6.29 mmol/L (3.70-5.30); pH, Arterial 7.31 (7.35-7.45)
[2020-07-17 07:57] LABS: Puncture Site LRA
[2020-07-17] MEDS: Dexamethasone Sod Phosphate 6 MG in Sodium Chloride 0.9% 50 ML IVPB SCH (09:05)
[2020-07-17] MEDS: Pantoprazole 40 MG GRANULES PACKET PER TUBE SCH (09:06)
[2020-07-17] MEDS: Apixaban 5 MG TAB PO SCH ×2 (09:06→20:50)
[2020-07-17] MEDS: Cefepime 1 GM in Sodium Chloride 0.9% 100 ML IVPB SCH ×2 (09:06→20:47)
--- NOTE | 2020-07-17 09:52 | RAD ---
FRONTAL RADIOGRAPH CHEST: DTAE: 07/17/2020. COMPARISON: 07/15/2020. HISTORY: Ventilated patient. FINDINGS: Stable endotracheal tube and nasogastric tube. Extensive diffuse interstitial and alveolar opacity n oted bilaterally with a perihilar/bibasilar predominance. IMPRESSION: No significant interval change. POS: [facility]
[2020-07-17] MEDS: Fluconazole In NaCl,Iso-Osm 400 MG in Premix Bag 1 BAG IVPB SCH (10:30)
--- NOTE | 2020-07-17 15:35 | PRG ---
DATE OF SERVICE: 07/17/2020 SUBJECTIVE: David Kelly remains mechanically ventilated. We switched his feeds to [place] because of an elevated potassium. His FiO2 is adjusted to 50%. His pH 7.31, CO2 of 45, PO2 of 79. Hemodynamics remained stable. OBJECTIVE: VITAL SIGNS: His blood pressure 174/85, heart rate 66, respiratory rate 20, FiO2 is went from 60 to 50. LUNGS: Clear. HEART: Regular rhythm. ABDOMEN: Soft. LABORATORY DATA: White count is 53,000 today with only 8% bands, he does have 1% metamyelocyte. He has had as many as 7% myelocytes and 3% metamyelocytes. Hemoglobin 7.9, platelets 111,000. Sodium 143, potassium 6.3, chloride 111, bicarb 24, BUN 70, creatinine 1.17. Intake and outputs -606. IMPRESSION: 1. COVID pneumonia respiratory failure. 2. Leukocytosis with multiple circulating immature white cells. I suspect this is a leukemoid reaction, but the leukemia is still in the differential. 3. Elevated liver enzymes, which are improving. 4. Respiratory acidosis with pH 7.31, CO2 of 45, PO2 of 79. I have not really made significant ventilatory changes today other than to decrease his FiO2 to 50%. We will reassess him in the morning. There is nothing on his chest x-ray that explains his elevated white count. I did add empiric antifungal therapy today if blood cultures were drawn. Critical care time 30 min. Job ID: [id number] MTDD
[2020-07-17] MEDS: Propofol 1,000 MG/100 ML VIAL IV PRN ×2 (18:22→20:47)
[2020-07-17 18:53] LABS: Anion Gap 15 mmol/L (10-20); BUN (Urea Nitrogen) 79 mg/dL (8.4-25.7); Calc. Creatinine Clearance 103 mL/min (70-130); Calcium 8.2 mg/dL (7.8-10.44); Carbon Dioxide 24 mmol/L (23-31); Chloride 113 mmol/L (98-107); Glucose 136 mg/dL (83-110); Sodium 145 mmol/L (136-145)
[2020-07-17 19:08] LABS: Potassium 6.6 mmol/L (3.5-5.1)
[2020-07-17] MEDS ORDERED: Dextrose 50% Abboject 50 ML SYRINGE SLOW IVP PRN (19:26)
[2020-07-17] MEDS ORDERED: Insulin Regular 300 UNITS/3 ML VIAL SC SCH (19:30)
[2020-07-17] MEDS ORDERED: Furosemide 40 MG/4 ML VIAL SLOW IVP SCH (19:30)
[2020-07-17] MEDS ORDERED: Albuterol Sulfate 2.5 mg/3 ml Neb NEB SCH (19:30)
[2020-07-17] MEDS ORDERED: Albuterol Sulfate 2.5 mg/0.5 ml Neb ONE (19:56)
[2020-07-17] MEDS ORDERED: Dextrose 50% Abboject 50 ML SYRINGE ONE (20:44)
[2020-07-17] MEDS ORDERED: Insulin Regular 300 UNITS/3 ML VIAL IVP SCH (21:00)
[2020-07-17] MEDS ORDERED: Dextrose 50% Abboject 50 ML SYRINGE SLOW IVP SCH (21:00)
[2020-07-17 22:22] LABS: Potassium 5.7 mmol/L (3.5-5.1)
[2020-07-17] MEDS: fentaNYL Citrate/PF 2,000 MCG in Sodium Chloride 0.9% 60 ML IV SCH (23:58)
[2020-07-18] MEDS: Diabetic Tussin 200 MG/10 ML UDCUP PO SCH ×7 (01:08→23:54)
[2020-07-18] MEDS ORDERED: Furosemide 40 MG/4 ML VIAL SLOW IVP SCH (02:45)
[2020-07-18 04:49] LABS: Anion Gap 14 mmol/L (10-20); BUN (Urea Nitrogen) 81 mg/dL (8.4-25.7); Calc. Creatinine Clearance 106 mL/min (70-130); Carbon Dioxide 25 mmol/L (23-31); Chloride 112 mmol/L (98-107); Potassium 6.2 mmol/L (3.5-5.1); Sodium 145 mmol/L (136-145)
[2020-07-18 04:50] LABS: ALT (SGPT) 183 U/L (8-55); AST (SGOT) 290 U/L (5-34); Albumin 2.8 g/dL (3.4-4.8); Alkaline Phosphatase 78 U/L (40-110); Bilirubin, Total 1.1 mg/dL (0.2-1.2); Calcium 8.1 mg/dL (7.8-10.44); Glucose 114 mg/dL (83-110); Protein, Total 6.8 g/dL (5.8-8.1)
[2020-07-18 04:56] LABS: Hemoglobin 7.6 g/dL (14.0-18.0); Lymphocytes 5 % (21-51); MDiff Complete? YES; Mean Corpuscular HGB CONC 30.5 g/dL (32.0-36.0); Mean Corpuscular Hemoglobin 29.7 pg (27.0-31.0); Mean Corpuscular Volume 97.6 fL (78.0-98.0); Mean Platelet Volume 9.5 fL (7.4-10.4); Monocytes 31 % (0-10); Myelocyte 1 % (0-0); Neutrophil 63 % (42-75); Platelet Count 114 thou/uL (130-400); Platelet Morphology Comment Appears Decreased; RBC Distribution Width 13.8 % (11.5-14.5); Red Blood Cell (RBC) Count 2.54 mill/uL (4.70-6.10); White Blood Cell (WBC) Count 42.8 thou/uL (4.8-10.8)
--- NOTE | 2020-07-18 08:18 | RAD ---
Portable frontal chest radiograph: 07/18/2020 COMPARISON: 07/17/2020 HISTORY: Ventilated patient FINDINGS: Stable endotracheal tube and nasogastric tube. Stable diffuse severe interstitial and alveo lar opacity with a bilateral perihilar/basilar predominance. IMPRESSION: No significant interval change.
--- NOTE | 2020-07-18 08:37 | PDOC.FM ---
- Subjective Subjective: Patient remains intubated and sedated. Per Resident Night Team, patient's K continues to remain elevated. Due to concerns over desat'ing, patient was not administered Kayexalate and was instead given Albuterol, Insulin + Glucose and Furosemide. - Objective Vital Signs & Weight: Vital Signs (12 hours) Temp Pulse Resp BP 07/18/20 07:19 80 127/63 07/18/20 06:00 25 H 07/18/20 05:00 99.2 F 07/18/20 04:00 26 H 07/18/20 03:00 99.0 F 07/18/20 02:00 29 H 07/18/20 01:35 93 07/18/20 01:00 97.5 F L 07/18/20 00:00 30 H 07/17/20 22:36 102 H 07/17/20 22:00 26 H Weight Admit Weight 128.5 kg Weight 58.74 kg Most Recent Monitor Data Heart Rate from ECG 73 NIBP 146/71 NIBP BP-Mean 96 Respiration from ECG 24 SpO2 100 I&O: 07/17/20 07/18/20 07/19/20 06:59 06:59 06:59 Intake Total 2213.6 2258.2 Output Total 2820 3585 Balance -606.4 -1326.8 Result Diagrams: 07/18/20 03:00 07/18/20 03:00 Phys Exam - Physical Examination Constitutional: NAD HEENT: moist MMs Neck: supple Course breath sounds Cardiovascular: RRR, no significant murmur, no rub Gastrointestinal: soft, non-tender, no distention, positive bowel sounds Musculoskeletal: no edema, pulses present Dx/Plan (1) Acute respiratory failure with hypoxia Code(s): J96.01 - ACUTE RESPIRATORY FAILURE WITH HYPOXIA Status: Acute (2) Pneumonia due to COVID-19 virus Code(s): U07.1 - COVID-19; J12.89 - OTHER VIRAL PNEUMONIA Status: Acute (3) Atrial fibrillation Code(s): I48.91 - UNSPECIFIED ATRIAL FIBRILLATION Status: Acute - Plan Plan: Patient is a 70 y/o male with a PMH significant for A-Fib, HFrEF and HTN who presented to the hospital for worsening respiratory symptoms following COVID-19 diagnosis. #Hypoxic Respiratory Failure 2/2 COVID-19 PNA - Patient became fatigued and intubated 07/08, currently on Bi-level, required increase to FiO2 60% overnight - s/p Convalescent Plasma, Remdesivir - Will continue patients home Eliquis for VTE PPX - Will continue IV Dexamethasone, IV Protonix - Dr. Maloney (Pul): Consulted, recs appreciated - Tube feeds started on 07/09 - s/p Albumin, IVF - now transitioned to free H2O flushes only -Femoral Central Line (L) placed 07/10, initially required Levophed for pressure support - dcd on 07/12 - Urine output greatly increased following administration of Furosemide - Palliative Care: Consulted, recs appreciated - Will continue Cefepime (07/11) #Hyperkalemia -K: 6.3 > 5.7 > 6.2 -Will consider placement of Rectal Tube with Kayexalate CLOTILDE if required #SUMEET, resolved - Urine output improved; per Nursing Staff Garza was flushed and allowed for greater output - Suspect component of ATN as cause of worsening renal function that has since improved - Will continue to monitor Cr and fluid balance closely #Hypernatremia and Hyperchloremia, improving - Na: 147 > 145 > 143 - Cl: 118 > 115 > 111 - Likely due to NS switched to KVO , increased free H2O flushes to 250 ml QID #Normocytic Anemia - Hgb: 9.0 > 8.2 > 7.9 > 7.6 - No obvious signs of bleeding - will continue to monitor #Leukocytosis - Possibly 2/2 ongoing steroid use - Procal: 0.35 - Ucx: Negative - BCx: Negative - No evidence of bacterial respiratory infection but will continue Cefepime due to illness severity #Transaminitis - AST/ALT: 297/193 on 07/15 - downtrended to 200/156 on 07/17 - Possibly due to hypotension, decreased MAPs - Remdesivir may be contributing factor, although unlikely based on sharp incre ase - Statin dcd for the time being HFrEF - Echo (12/2018): EF (35-40%) - Fluids KVO 07/14 - Patient initially denied home meds other than Lisinopril started on Coreg and Atorvastatin but both currently held due to Transaminitis and need for pressure support - Daily Weights - Strict I&Os #HTN - Pressures have been lower end of normal overnight - not currently requiring BP support - Hydralazine PRN #Suspected EtOH Abuse - ASE Scores have been stable - No concerns for EtOH Withdrawal at this time #A-Fib - Continuous cardiac monitoring - Will continue home meds PCP: She Code: Full Diet: Tube Feeds Activity: Bedrest VTE PPx: Home Eliquis IVF: KVO Dispo: Patient is currently admitted to the CCU for ongoing management of Acute Hypoxic Respiratory Failure due to COVID-19 Pneumonia. Patient is s/p Remdesivir and Convalescent Plasma, will continue steroids and ABx as per above. Pulmo nology consulted for respiratory support, recs appreciated. Patients overall prognosis remains poor. Expected LOS > 48H. Addendum - Attending - Attending Attestation Date/Time: 07/18/20 1050 I personally evaluated the patient and discussed the management with Dr. Segovia. I agree with the History, Examination, Assessment and Plan documented above with any addition or exceptions noted below. Patient overall stable, but continues to be critically ill. Respiratory status with some mild improvment, but continues to have desaturations with minimal movement of patient. Renal function continues to improve, and patient continues to diurese. He continues to have issues with mild hyperkalemia, will try to change tube feeds to low potassium, and add kayexolate, rectal tube if needed. WBC continues to be extremely elevated, concern for MPD, but continues on abx and antifungals. Pulm on board.
[2020-07-18] MEDS: Pantoprazole 40 MG GRANULES PACKET PER TUBE SCH (08:57)
[2020-07-18] MEDS: Apixaban 5 MG TAB PO SCH ×2 (08:57→19:29)
[2020-07-18] MEDS: Cefepime 1 GM in Sodium Chloride 0.9% 100 ML IVPB SCH ×2 (08:58→21:14)
[2020-07-18] MEDS: Fluconazole In NaCl,Iso-Osm 400 MG in Premix Bag 1 BAG IVPB SCH (08:58)
[2020-07-18] MEDS: Dexamethasone Sod Phosphate 6 MG in Sodium Chloride 0.9% 50 ML IVPB SCH (09:02)
[2020-07-18] MEDS ORDERED: Fentanyl BOLUS 250 ML IVPB PRN (13:59)
[2020-07-18] MEDS ORDERED: Morphine 2 MG/ML VIAL SLOW IVP PRN (13:59)
[2020-07-18] MEDS ORDERED: Lorazepam 2 MG/ML VIAL SLOW IVP PRN (13:59)
[2020-07-18] MEDS ORDERED: fentaNYL Citrate/PF 2,000 MCG in Sodium Chloride 0.9% 60 ML IV SCH (14:00)
[2020-07-18 14:51] VITALS: BP 144/72
--- NOTE | 2020-07-18 17:27 | PRG ---
DATE OF SERVICE: 07/18/2020 SUBJECTIVE: Mr. Bowen remains mechanically ventilated. His hemodynamics were stable. OBJECTIVE: VITAL SIGNS: Heart rates in the 70s, blood pressure 144/72, respiratory rate is in the 20s. LUNGS: Remarkable for coarse equal breath sounds. HEART: Regular rhythm. ABDOMEN: Soft. LABORATORY DATA: White count is down from yesterday to 42.8, hemoglobin 7.6, platelets 114. Sodium 145, potassium 6.2, chloride 112, bicarb 25, BUN 81, creatinine 1.17. Liver enzymes remain mildly elevated. Chest x-ray is unchanged. IMPRESSION: 1. Respiratory failure secondary to COVID pneumonia. 2. Borderline hyperkalemia. His nutrition was to be changed yesterday to nutritional support that has no potassium. Check a cortisol level. I doubt this is secondary to adrenal insufficiency. He is supposed to get a renal tubular acidosis with this. 3. We will continue with steroids, antimicrobial therapy, some ventilatory support. He is currently not weanable. 4. Leukocytosis appears to be improving. His FiO2 is down to 50%. Hopefully, this will continue to improve. Critical care time 30 min. Job ID: [id number] MTDD
[2020-07-18] MEDS: Propofol 1,000 MG/100 ML VIAL IV PRN (19:29)
[2020-07-19] MEDS: Diabetic Tussin 200 MG/10 ML UDCUP PO SCH ×6 (03:36→23:56)
[2020-07-19 05:08] LABS: ALT (SGPT) 237 U/L (8-55); AST (SGOT) 426 U/L (5-34); Albumin 2.8 g/dL (3.4-4.8); Alkaline Phosphatase 92 U/L (40-110); Anion Gap 13 mmol/L (10-20); BUN (Urea Nitrogen) 74 mg/dL (8.4-25.7); Calc. Creatinine Clearance 52 mL/min (70-130); Calcium 8.3 mg/dL (7.8-10.44); Carbon Dioxide 29 mmol/L (23-31); Chloride 110 mmol/L (98-107); Globulin 4.4 g/dL (2.4-3.5); Glucose 118 mg/dL (83-110); Potassium 5.9 mmol/L (3.5-5.1); Protein, Total 7.2 g/dL (5.8-8.1); Sodium 146 mmol/L (136-145)
[2020-07-19 05:10] LABS: Hemoglobin 7.7 g/dL (14.0-18.0); Mean Corpuscular HGB CONC 31.1 g/dL (32.0-36.0); Mean Corpuscular Volume 99.7 fL (78.0-98.0); Mean Platelet Volume 9.8 fL (7.4-10.4); Platelet Count 122 thou/uL (130-400); Red Blood Cell (RBC) Count 2.47 mill/uL (4.70-6.10)
--- NOTE | 2020-07-19 05:41 | PDOC.FM ---
- Subjective Subjective: NAEO. Patient remains ventilated and sedated. Nurse concerned that tidal volume only in 200s. Otherwise, no issues overnight. his urine output has been good. - Objective MAR Reviewed: Yes Vital Signs & Weight: Vital Signs (12 hours) Temp Pulse Resp Pulse Ox 07/19/20 04:00 99.1 F 25 H 07/19/20 02:16 72 07/19/20 02:00 26 H 07/19/20 00:00 99.2 F 26 H 07/18/20 22:49 71 07/18/20 22:00 25 H 07/18/20 20:00 26 H 07/18/20 19:01 76 07/18/20 19:00 98.9 F 07/18/20 18:50 99 07/18/20 18:00 26 H Weight Admit Weight 128.5 kg Weight 58.74 kg Most Recent Monitor Data Heart Rate from ECG 70 NIBP 129/64 NIBP BP-Mean 85 Respiration from ECG 25 SpO2 99 I&O: 07/17/20 07/18/20 07/19/20 06:59 06:59 06:59 Intake Total 2213.6 2258.2 1007.7 Output Total 2820 3585 4400 Balance -606.4 -1326.8 -3392.3 Result Diagrams: 07/19/20 03:45 07/19/20 03:45 Phys Exam - Physical Examination Constitutional: NAD HEENT: moist MMs Neck: supple coarse breath sounds heard diffusely Cardiovascular: RRR, no significant murmur, no rub Gastrointestinal: soft, no distention Musculoskeletal: no edema, pulses present on ventilator and sedated Deviation from normal: skin breakdown on right forearm Dx/Plan - Plan Plan: Patient is a 70 y/o male with a PMH significant for A-Fib, HFrEF and HTN who presented to the hospital for worsening respiratory symptoms following COVID-19 diagnosis. #Hypoxic Respiratory Failure 2/2 COVID-19 PNA Patient became fatigued and intubated 07/08, currently on Bi-level. s/p Convalescent Plasma, Remdesivir. - Will continue patients home Eliquis for VTE PPX - Will continue IV Dexamethasone. Will switch from protonix to pepcid. - Will get D-dimer in the AM, currently on home apixaban - Dr. Maloney (Pulm): Consulted, recs appreciated. Able to go to 50% FiO2 on 07/18, now on 45%, peep of 10. Will touch base with RT and pulm about settings. Will continue to ween as tolerated. - Tube feeds started on 07/09 - s/p Albumin, IVF - now transitioned to free H2O flushes only -Femoral Central Line (L) placed 07/10, initially required Levophed for pressure support - dcd on 07/12 - Urine output greatly increased following administration of Furosemide - Palliative Care consulted, recs appreciated. - Will continue Cefepime (07/11), Fluconazole (07/17) #Hyperkalemia -K: 6.3 > 5.7 > 6.2 > 5.9 - Will give dose of lasix and albuterol. Will schedule kayexalate RI. Will add probiotics. Consider insulin if needed. No EKG changes currently. #SUMEET, resolved - Urine output improved; per Nursing Staff Garza was flushed and allowed for greater output - Suspect component of ATN as cause of worsening renal function that has since improved - Will continue to monitor Cr and fluid balance closely. I/O: 1007.01/4400 #Hypernatremia and Hyperchloremia, improving - Na: 147 > 145 > 143 > 146 - Cl: 118 > 115 > 111 > 110 - Likely due to NS switched to KVO , increased free H2O flushes to 250 ml QID #Normocytic Anemia - Hgb: 9.0 > 8.2 > 7.9 > 7.6 > 7.7 - No obvious signs of bleeding - will continue to monitor #Leukocytosis Possibly 2/2 ongoing steroid use. Downtrended to 32. - Procal: 0.35 - Ucx: Negative; BCx: Negative - No evidence of bacterial respiratory infection but will continue Cefepime, fluconzaole due to illness severity #Transaminitis AST/ALT: 297/193 on 07/15 - downtrended to 200/156 on 07/17 but worsened on 07/19. - Possibly due to hypotension vs COVID disease. Remdesivir may be contributing factor, although unlikely based on sharp increase. - Statin dcd for the time being HFrEF Echo (12/2018): EF (35-40%) - Fluids KVO 07/14 - Patient initially denied home meds other than Lisinopril. Started on Coreg and Atorvastatin but both currently held due to Transaminitis. - Daily Weights - Strict I&Os #HTN - Pressures have been normal overnight - not currently requiring BP support. - Hydralazine PRN #Suspected EtOH Abuse - ASE Scores have been stable. No concerns for EtOH Withdrawal at this time #A-Fib - Continuous cardiac monitoring - Will continue home meds PCP: She Code: Full Diet: Tube Feeds Activity: Bedrest VTE PPx: Home Eliquis IVF: KVO Dispo: Patient is currently admitted to the CCU for ongoing management of Acute Hypoxic Respiratory Failure due to COVID-19 Pneumonia. Patient is s/p Remdesivir and Convalescent Plasma, will continue steroids and ABx as per above. Pulmonology consulted for respiratory support, recs appreciated. Patients overall prognosis remains poor. Palliative care consulted to help assist with goals of care and family support. Expected LOS > 48H. Addendum - Attending - Attending Attestation Date/Time: 07/19/20 9095 I personally evaluated the patient and discussed the management with Dr. Kuo I agree with the History, Examination, Assessment and Plan documented above with any addition or exceptions noted below. 70 yo male admitted for acute hypoxc respiratory failure due to COVID infection with underlying HTN, HFrEF, and afib Patient remains on MV with poor oxygenation. Pulm following and managing. Poor prognosis. Has completed all known treatments for COVID. However remains on steroids. No evidence of superimposed bacterial infection but per pulm recs, remains on antibx at this time. Hx of possible drug fever vs line fever. Has been afebrile. Potassium still elevated this AM. Unsure etiology at this time. Became elevated on 07/15 and has remained. Tube feeds adjusted to low potassium. Will switch PPI to H2B. Continue kayalexate. Rectal tube placed to monitor BMs. Probiotics started due to prolonged antibx course. Tristan
[2020-07-19 05:50] VITALS: BMI 40.3
[2020-07-19 06:31] LABS: Band 1 % (5-11); Hypochromia SLIGHT = 6-15 cells (100X) (0-5/hpf); Lymphocytes 2 % (21-51); Monocytes 30 % (0-10); Neutrophil 67 % (42-75)
[2020-07-19 06:32] LABS: Platelet Morphology Comment Appears Adequate
[2020-07-19 06:35] LABS: MDiff Complete? YES
[2020-07-19] MEDS ORDERED: Albuterol Sulfate 1.25 MG/3 ML NEB NEB SCH (07:30)
[2020-07-19] MEDS ORDERED: Furosemide 40 MG/4 ML VIAL SLOW IVP SCH (07:30)
[2020-07-19] MEDS: Apixaban 5 MG TAB PO SCH ×2 (08:04→20:33)
[2020-07-19] MEDS: Pantoprazole 40 MG GRANULES PACKET PER TUBE SCH (08:04)
[2020-07-19] MEDS: Propofol 1,000 MG/100 ML VIAL IV PRN (08:08)
[2020-07-19] MEDS ORDERED: Dextrose 5% in Water 1,000 ML IV SCH (09:00)
[2020-07-19] MEDS ORDERED: Lactinex Tablet PO SCH (09:00)
[2020-07-19] MEDS: Dexamethasone Sod Phosphate 6 MG in Sodium Chloride 0.9% 50 ML IVPB SCH (09:47)
[2020-07-19] MEDS: Fluconazole In NaCl,Iso-Osm 400 MG in Premix Bag 1 BAG IVPB SCH (09:50)
[2020-07-19] MEDS: Cefepime 1 GM in Sodium Chloride 0.9% 100 ML IVPB SCH ×2 (09:51→20:33)
[2020-07-19] MEDS: Famotidine/PF 20 mg/2ml Vial SLOW IVP SCH ×2 (09:53→20:33)
--- NOTE | 2020-07-19 10:02 | RAD ---
Exam: Chest one view HISTORY:Respiratory distress. Ventilated patient. Comparison: 07/18/2020 FINDINGS: Lines and tubes: Endotracheal and nasogastric tube are identified. Cardiac silhouette: Normal Aorta: Unremarkable Pulmonary vessels: Normal Costophrenic angles: Clear LUNGS: Multifocal interstitial and alveolar opacities. Pneumothorax: None Osseous abnormalities: None IMPRESSION: No significant interval change. Redemonstration multi lobar pneumonia.
--- NOTE | 2020-07-19 16:59 | PRG ---
DATE OF SERVICE: 07/19/2020 SUBJECTIVE: Mr. Kelly remains mechanically ventilated. OBJECTIVE: VITAL SIGNS: Heart rates in the 60s. FiO2 is down to 40% now. Blood pressure 151/74, respiratory rates in the 20s. Intake and outputs -2547. LUNGS: Clear. HEART: Regular rhythm. ABDOMEN: Soft. LABORATORY DATA: White count is down to 32, hemoglobin 7.7, platelets 122. Sodium 146, potassium 5.9, chloride 110, bicarb 29, BUN 74, creatinine 1.08. Cultures from 2 days ago are negative. IMPRESSION: 1. Respiratory failure associated with COVID pneumonia, slowly making clinical improvement. 2. Leukocytosis, slowly improving. PLAN: Continue support. Job ID: [id number]
[2020-07-19 20:58] VITALS: TEMP 100.4
[2020-07-20] MEDS ORDERED: EPINEPHrine 1 MG/10 ML Abboject SYRINGE ONE (01:00)
[2020-07-20] MEDS ORDERED: Amiodarone 150 MG/3 ML VIAL ONE (01:00)
[2020-07-20] MEDS ORDERED: Sodium Bicarb 50 MEQ/50 ML Abboject 8.4% SYRINGE ONE (01:00)
--- NOTE | 2020-07-20 01:34 | PDOC.BPN ---
- Brief Progress Note Encounter Date: 07/20/20 Encounter Time: 01:00 Residents were paged to bedside for a CODE BLUE @ ~0100. On arrival to bedside, nursing staff reported that the patient had been off of sedation for ~12 hours during which time he showed no signs of any significant brain activity. Family was reportedly going to decide whether he should remain full code or not later today. The patient reportedly became bradycardic as low as the 30s just prior to the code being called. He was subsequently noted to have gone into PEA so chest compressions were started & a code blue was called. By the time of our arrival compressions were still in progress and the patient was s/p epi x1. A pulse check was performed with a doppler which revealed he was in asystole so compressions were resumed and 1 amp of bicarb & another dose of epi were given. The patient's son was then called & updated who stated "I want everything that can be done to be done but once you think nothing else can be done make the call." CPR was continued for the next 10 minutes during which 300mg IV amio was given. A 3rd pulse check was performed which revealed the patient was still in asystole. The decision was then made to stop CPR. TOD was noted to be 0110.
--- NOTE | 2020-07-21 06:30 | DIS ---
DATE OF ADMISSION: 07/04/2020 DATE OF DISCHARGE: 07/20/2020 ATTENDING: Shaun Nieto MD RESIDENT: Joan Pablo MD DATE OF : 07/20/2020. TIME OF : 0110 hours. CAUSE OF : Cardiac arrest 2/2 acute hypoxic respiratory failure 2/2 COVID pneumonia. SECONDARY DIAGNOSES: 1. Atrial fibrillation. 2. HFrEF. 3. Hypertension. HOSPITAL COURSE: This is a 70-year-old male who presented to the emergency department on 07/04 for symptoms of shortness of breath and was subsequently found to have hypoxic respiratory failure and sepsis 2/2 COVID pneumonia. He rapidly decompensated and required intubation on 07/08. He has continued to be intubated and at approximately 0100 hours, started having bradycardia which became PEA. CPR was performed and several rounds of epinephrine and bicarb were given. His son and MPOA, Estefania, was called regarding the patient's code status and requested that we do everything that could be done and then make a call when we felt there was nothing else to be done. As such, CPR was discontinued and the patient passed at 0110 hours. Job ID: [id number]
--- NOTE | 2020-07-21 07:04 | DIS ---
DATE OF ADMISSION: 07/04/2020 DATE OF DISCHARGE: 07/20/2020 RESIDENT: Fernando Segovia MD ADMITTING ATTENDING: Laz Tesfaye MD DISCHARGE ATTENDING: Shaun Nieto MD CONSULTS: Britton Maloeny MD, Pulmonology and Garth Perry MD, Pulmonology. PROCEDURES: Chest x-ray performed on 07/04/2020, which demonstrated multilobar COVID pneumonia. Repeat chest x-rays were performed throughout the duration of the patient's hospitalization with the most recent chest x-ray performed on 07/19/2020, which demonstrated no significant interval change, redemonstration of multilobar pneumonia. Chest/thorax CTA performed on 07/04/2020, which demonstrated diminished opacification of the pulmonary arterial tree due to consistent bolus timing as well as respiratory motion artifact that limited the evaluation. No definitive central pulmonary embolus noted. Diffuse prominent bilateral perihilar ground-glass airspace opacities consistent with atypical pneumonia that could be seen with COVID-19, likely reactive bilateral hilar lymphadenopathy. Intubation performed on 07/08/2020. Central venous catheter placement performed on 07/09/2020. PRIMARY DIAGNOSIS: COVID-19 pneumonia. SECONDARY DIAGNOSES: Hyperkalemia, hypotension, acute kidney injury, hypernatremia, hyperchloremia, normocytic anemia, leukocytosis, transaminitis, heart failure with reduced ejection fraction, hypertension, atrial fibrillation. DISCHARGE MEDICATIONS: None. DISCONTINUED MEDICATIONS: None. HISTORY OF PRESENT ILLNESS/HOSPITAL COURSE: The patient is a 70-year-old male with past medical history significant for atrial fibrillation and heart failure with reduced ejection fraction with an echo performed in December of 2018 that demonstrated an ejection fraction of 35% to 40%, who presents to the emergency department for evaluation of a 5-day history of shortness of breath and cough. The patient was diagnosed with COVID-19 on Tuesday prior to presentation following a positive test. Since then, his symptoms have worsened. He admits to related symptoms of nausea without palliative factors. He was prescribed an outpatient methylprednisolone taper as well as azithromycin and albuterol inhaler, but does not think that these have helped much. In the emergency department, the patient was administered Rocephin, azithromycin, and Lovenox at therapeutic dosing of 1 mg/kg. The patient was reportedly saturating 70% on room air, was subsequently placed on high-flow nasal cannula. ABG performed at the time showed evidence of respiratory alkalosis with metabolic compensation, which congruent with the patient's respiratory rate of 37. CTA and chest x-ray were performed. Results of which are mentioned elsewhere in this document. However, it is noted that there was no evidence of PE or bacterial consolidation. White blood cell count was initially low at 10 and a procal was drawn. The patient was subsequently transferred to the inpatient COVID Unit where he was administered dexamethasone, remdesivir, and convalescent plasma. Additionally, he was given Tessalon Perles for his cough as well as Zofran for nausea and Benadryl p.r.n. Attempted to wean high-flow nasal cannula as tolerated; however, the patient's respiratory status continued to decline throughout his hospitalization as such he was intubated on 07/08/2020. Pulmonology was consulted to assist with the patient while he was in the ICU. Regrettably, his clinical picture did not improve throughout his hospitalization. Attempted to manage electrolyte abnormalities as well as hydration status and pressure support. The patient was subsequently weaned off pressure support; however, he was never extubated. On 07/20/2020, a code was called at approximately 0100. The patient was given epinephrine x2, as well as amiodarone, and bicarb. Initial EKG reading showed PEA. Compressions were administered; however, the patient never converted to a functional rhythm and as such, the code was discontinued. Prior to the patient's , vital signs were recorded as temperature 100.4, pulse 71, blood pressure 162/83, respirations 25 breaths per minute on bilevel with FiO2 of 55%. Oxygen saturations were 98%. Laboratory analysis revealed a white blood cell count of 32, hemoglobin 7.7, hematocrit 24.6, platelet count 122. Coag panel revealed a D-dimer that was consistently greater than 20. ABG was performed on 07/17/2020, which demonstrated a pH of 7.31, pCO2 of 45.4, pO2 of 79.4. Chem panel revealed a sodium of 146, potassium 5.9, chloride 110, carbon dioxide 29, BUN 74, creatinine 1.08, down from a peak of 2.26, calcium 8.3, magnesium 3.1, ferritin 2144.89, total bilirubin 1, AST 42, ALT 237, alkaline phosphatase 92, lactate dehydrogenase 1116. Troponins 0.034, trending down to 0.031. Procalcitonin 0.35 with a peak level of 0.71, cortisol 5.9. Urinalysis revealed 100 protein, +3 blood, urine rbc's, urine bacteria +1, hyaline casts 4 to 6 without evidence of urine nitrite or urine leukocyte esterase. DISPOSITION: . DISCHARGE INSTRUCTIONS: 1. Location: Discharge to family and/or home. 2. Diet: Not applicable. 3. Activity: Not applicable. 4. Followup: None. Job ID: [id number]
== END 2020-07-20 01:10 | disposition expired | DRG 870 ==
LOC: ERS 10:02 → ERHOLD 13:20 → T4-A 19:39 → IMCU/EMU 07-06 11:34 → CCU 07-08 11:38 → SURG A 07-08 12:37 → CCU 07-08 12:39
PROVIDERS: ADMIT Family Medicine; ATTEND Family Medicine
PROC: XW033E5 Introduction of Remdesivir Anti-infective into Peripheral Vein, Percutaneous Approach, New Technology Group 5 (ICD-10-PCS; 2020-07-04)
PROC: 8E0ZXY6 Isolation (ICD-10-PCS; 2020-07-04)
PROC: XW13325 Transfusion of Convalescent Plasma (Nonautologous) into Peripheral Vein, Percutaneous Approach, New Technology Group 5 (ICD-10-PCS; 2020-07-05)
PROC: 5A09357 Assistance with Respiratory Ventilation, Less than 24 Consecutive Hours, Continuous Positive Airway Pressure (ICD-10-PCS; 2020-07-06)
PROC: 5A1955Z Respiratory Ventilation, Greater than 96 Consecutive Hours (ICD-10-PCS; principal; 2020-07-08)
PROC: 0BH17EZ Insertion of Endotracheal Airway into Trachea, Via Natural or Artificial Opening (ICD-10-PCS; 2020-07-08)
PROC: 0DH67UZ Insertion of Feeding Device into Stomach, Via Natural or Artificial Opening (ICD-10-PCS; 2020-07-09)
PROC: 3E033XZ Introduction of Vasopressor into Peripheral Vein, Percutaneous Approach (ICD-10-PCS; 2020-07-10)
PROC: 06HY33Z Insertion of Infusion Device into Lower Vein, Percutaneous Approach (ICD-10-PCS; 2020-07-10)
PROC: 5A12012 Performance of Cardiac Output, Single, Manual (ICD-10-PCS; 2020-07-20)
DX: A41.89 Other specified sepsis (principal); U07.1 COVID-19; J12.82 Pneumonia due to coronavirus disease 2019; J96.21 Acute and chronic respiratory failure with hypoxia; N17.0 Acute kidney failure with tubular necrosis; E87.0 Hyperosmolality and hypernatremia; I50.22 Chronic systolic (congestive) heart failure; E87.3 Alkalosis; Z68.41 Body mass index [BMI] 40.0-44.9, adult; I47.2 Ventricular tachycardia; E87.2 Acidosis; I13.0 Hypertensive heart and chronic kidney disease with heart failure and stage 1 through stage 4 chronic kidney disease, or unspecified chronic kidney disease; I46.8 Cardiac arrest due to other underlying condition; E87.5 Hyperkalemia; E87.8 Other disorders of electrolyte and fluid balance, not elsewhere classified; Z96.653 Presence of artificial knee joint, bilateral; I48.91 Unspecified atrial fibrillation; E66.9 Obesity, unspecified; N18.9 Chronic kidney disease, unspecified; F10.10 Alcohol abuse, uncomplicated; D72.829 Elevated white blood cell count, unspecified; T38.0X5A Adverse effect of glucocorticoids and synthetic analogues, initial encounter; Z28.21 Immunization not carried out because of patient refusal; Z78.1 Physical restraint status; Z86.718 Personal history of other venous thrombosis and embolism; Z79.899 Other long term (current) drug therapy; Z79.01 Long term (current) use of anticoagulants
CPT/HCPCS: 36415; 36416; 36430; 36600; 71045; 71275; 80053; 81003; 81015; 82330; 82533; 82553; 82728; 82803; 82805; 83605; 83615; 83735; 84145; 84484; 85025; 85060; 85379; 86140; 86850; 86900; 86901; 87040; 87086; 93005; 94002; 94003; 94640; 94660; 96365; 96372; C9113; J0171; J0282; J0360; J0456; J0692; J0696; J1450; J1650; J1815; J1940; J2060; J2270; J2704; J3010; J3490; J7050; J7611; J8540; P9017; P9045; P9047; Q9967; S0028